=== PATIENT | female | born 1930 | race Caucasian/White ===

== ENCOUNTER 2017-07-03 14:14 | Inpatient (IN) | payer MEDICARE, OTHER ==
--- NOTE | 2017-07-03 14:19 | EDM.PDOC ---
ED HPI GENERAL MEDICAL PROBLEM - General Stated Complaint: MANY COMPLICATIONS Time Seen by Provider: 07/03/17 14:18 Source of Information: Reports: Patient, Family, Provider, RN, RN Notes Reviewed , Other (clinic nurse) - History of Present Illness INITIAL COMMENTS - FREE TEXT/NARRATIVE: Pt presents to the ER from [facility]. Pt was being seen in the clinic for some increased SOB. The patient's vitals were taken and found to have O2Sats of low 80's. Pt was brought directly to the ER. Patient states she has had some SOB at times, but no chest pain, N/V/D, Fever or chills. She states a cough at times. She states she takes Mucinex twice daily as directed by Dr. Kidd. Pt states she had a pacemaker placed in 2013. Onset: Today Duration: Constant - Related Data Allergies Allergy/AdvReac Type Severity Reaction Status Date / Time Penicillins AdvReac Unknown Edema of Verified 07/03/17 14:21 legs/feet Home Meds: Home Meds Rosuvastatin Calcium [Crestor] 10 mg PO DAILY 12/27/13 [History] Warfarin [Coumadin] 5 mg PO ASDIRECTED 12/27/13 [History] Acetaminophen 650 mg PO Q6H PRN 01/01/14 [History] Antiox#10/Om3/DHA/EPA/Lut/Zeax [I-Caps with Lutein-[place] 3 SFG] 1 tab PO BID [History] Polyvinyl Alcohol/Povidone [Refresh] 1 drop EYEBOTH DAILY PRN 01/01/14 [History] Warfarin [Coumadin] 2.5 mg PO ASDIRECTED 01/20/14 [History] Potassium Chloride 10 meq PO BID 03/16/14 [History] Albuterol/Ipratropium [Combivent Respimat] 4 gm IH QID PRN #1 aer.w.adap [Rx] Budesonide/Formoterol Fumarate [Symbicort 80-4.5 Mcg Inhaler] 10.2 gm IH BID #1 hfa.aer.ad 03/22/14 [Rx] Acetaminophen/Diphenhydramine [Tylenol Pm Ex-Strength Caplet] 1 tab PO BEDTIME 07/03/17 [History] Furosemide [Lasix] 40 mg PO ASDIRECTED 07/03/17 [History] Lisinopril [Prinivil] 10 mg PO DAILY 07/03/17 [History] Magnesium Oxide 250 mg PO BID 07/03/17 [History] Metoprolol Succinate [Toprol XL] 12.5 mg PO DAILY 07/03/17 [History] Sertraline [Zoloft] 50 mg PO DAILY 07/03/17 [History] guaiFENesin/Dextromethorphan [Mucinex DM ER 1,200-60 MG] 1 tab PO BID PRN [History] Past Medical History - Past Health History Medical/Surgical History: Denies Medical/Surgical History HEENT History: Reports: None Cardiovascular History: Reports: Afib, Pacemaker Respiratory History: Reports: None Gastrointestinal History: Reports: None Genitourinary History: Reports: None Social & Family History - Tobacco Use Smoking Status *Q: Never Smoker Second Hand Smoke Exposure: No - Alcohol Use Days Per Week of Alcohol Use: 0 - Recreational Drug Use Recreational Drug Use: No Drug Use in Last 12 Months: No - Living Situation & Occupation Living situation: Reports: , Alone Occupation: Retired ED ROS GENERAL - Review of Systems Review Of Systems: ROS reveals no pertinent complaints other than HPI. ED EXAM, GENERAL - Physical Exam Exam: See Below Exam Limited By: No Limitations General Appearance: Alert, WD/WN, No Apparent Distress Eye Exam: Bilateral Eye: EOMI, Normal Inspection Ears: Normal External Exam, Hearing Grossly Normal, Other (hearing aids) Nose: Normal Inspection Throat/Mouth: Normal Inspection, Normal Voice, No Airway Compromise Head: Atraumatic, Normocephalic Neck: Normal Inspection, Full Range of Motion Respiratory/Chest: No Respiratory Distress, No Accessory Muscle Use, Chest Non- Tender, Decreased Breath Sounds, Crackles (bilateral) Cardiovascular: Normal Peripheral Pulses, Regular Rate, Rhythm, No Edema, Systolic Murmur Peripheral Pulses: 1+: Radial (L), Radial (R) GI/Abdominal: Normal Bowel Sounds, Soft, Non-Tender, No Organomegaly, No Distention, No Abnormal Bruit, No Mass, Pelvis Stable (Female) Exam: Deferred Rectal (Female) Exam: Deferred Back Exam: Normal Inspection, Decreased Range of Motion Extremities: Normal Inspection, Normal Range of Motion, Non-Tender, No Pedal Edema, Normal Capillary Refill Neurological: Alert, Oriented, Normal Cognition, Normal Gait, No Motor/Sensory Deficits Psychiatric: Normal Affect, Normal Mood Skin Exam: Warm, Dry, Intact, Normal Color, No Rash Lymphatic: No Adenopathy EKG INTERPRETATION EKG Date: 07/03/17 Time: 14:22 Rhythm: A-Flutter (Ventricular paced) Rate (Beats/Min): 67 Comparison: Change From Previous EKG Course - Vital Signs Last Recorded V/S: Last Vital Signs Temp 98.1 F 07/03/17 14:22 Pulse 77 07/03/17 14:38 Resp 20 07/03/17 14:22 BP 143/65 H 07/03/17 14:22 Pulse Ox 85 L 07/03/17 14:22 - Orders/Labs/Meds Orders: Active Orders 24 hr Category Date Time Status EKG Documentation Completion [RC] STAT Care 07/03/17 14:19 Active Peripheral IV Care [RC] . DIRECTED Care 07/03/17 14:20 Active RT Aerosol Therapy [RC] ASDIRECTED Care 07/03/17 14:26 Active INFLUENZA A+B AG SCREEN [RM] Stat Lab 07/03/17 14:19 Ordered UA W/MICROSCOPIC [URIN] Stat Lab 07/03/17 14:33 Ordered Sodium Chloride 0.9% [Saline Flush] Med 07/03/17 14:19 Active 10 ml FLUSH ASDIRECTED PRN Peripheral IV Insertion Adult [OM.PC] Stat Oth 07/03/17 14:19 Ordered Medication Orders Sodium Chloride (Saline Flush) 10 ml FLUSH ASDIRECTED PRN PRN Reason: Keep Vein Open Last Admin: 07/03/17 14:46 Dose: 10 ml Labs: Laboratory Tests 07/03/17 07/03/17 07/03/17 Range/Units 14:20 14:20 14:33 WBC 8.3 (5.0-10.0) 10^3/uL RBC 3.51 L (4.2-5.4) 10^6/uL Hgb 10.8 L (12.0-16.0) g/dL Hct 33.8 L (37.0-47.0) % MCV 96.3 (80-100) fL MCH 30.8 (27.0-34.0) pg MCHC 32.0 L (33.0-35.0) g/dL Plt Count 204 D (150-450) 10^3/uL Neut % (Auto) 84.7 H (42.2-75.2) % Lymph % (Auto) 7.8 L (20.5-50.1) % [place] % (Auto) 7.4 (2-8) % Eos % (Auto) 0.0 L (1.0-3.0) % Baso % (Auto) 0.1 (0.0-1.0) % Sodium 129 L (135-145) mmol/L Potassium 4.2 (3.6-5.0) mmol/L Chloride 95 L (101-111) mmol/L Carbon Dioxide 23.0 (21.0-31.0) mmol/L Anion Gap 15.2 BUN 28 H (7-18) mg/dL Creatinine 1.2 (0.6-1.3) mg/dL Est Cr Clr Drug Dosing 25.63 mL/min Estimated GFR (MDRD) 42 BUN/Creatinine Ratio 23.33 Glucose 132 H (74-105) mg/dL Calcium 8.9 (8.4-10.2) mg/dl Total Bilirubin 1.4 H (0.2-1.0) mg/dL AST 45 H (10-42) IU/L ALT 21 (10-60) IU/L Alkaline Phosphatase 59 (42-121) IU/L Troponin I 0.04 H* (0.00-0.02) ng/ml B-Natriuretic Peptide 633 H (0-100) pg/ml Total Protein 7.4 (6.7-8.2) g/dl Albumin 3.8 (3.2-5.5) g/dl Globulin 3.6 Albumin/Globulin Ratio 1.06 Urine Color Yellow (YELLOW) Urine Appearance Slightly cloudy (CLEAR) Urine pH 5.5 (5.0-9.0) Ur Specific [place] 1.010 (1.005-1.030) Urine Protein Negative (NEGATIVE) Urine Glucose (UA) Negative (NEGATIVE) Urine Ketones Negative (NEGATIVE) Urine Occult Blood Small H (NEGATIVE) Urine Nitrite Negative (NEGATIVE) Urine Bilirubin Negative (NEGATIVE) Urine Urobilinogen 0.2 (0.2-1.0) mg/dL Ur Leukocyte Esterase Small H (NEGATIVE) Urine RBC 5-10 H /HPF Urine WBC 5-10 H (0-5/HPF) /HPF Ur Epithelial Cells Rare /HPF Amorphous Sediment Rare (0/HPF) /HPF Urine Bacteria Rare (0-FEW/HPF) /HPF Influenza A: Negative Influenza B: Negative Meds: Medications Generic Name Dose Route Start Last Admin Trade Name Freq PRN Reason Stop Dose Admin Sodium Chloride 10 ml 07/03/17 14:19 07/03/17 14:46 Saline Flush FLUSH 10 ml ASDIRECTED PRN Administration Keep Vein Open Discontinued Medications Generic Name Dose Route Start Last Admin Trade Name Freq PRN Reason Stop Dose Admin Albuterol/Ipratropium 3 ml 07/03/17 14:26 07/03/17 14:46 Duoneb 3.0-0.5 Mg/3 Ml NEB 07/03/17 14:27 3 ml ONETIME ONE Administration - Radiology Interpretation Free Text/Narrative:: Chest xray: IMPRESSION: Patchy air space opacity noted within the left lower lobe consistent with pneumonia with left pleural effusion. Thank you for allowing us to participate in the care of your patient. Dictated and Authenticated by: Deon Cole DO 07/03/2017 3:06 PM Central Time ([place] & [place]) See rad report Departure - Departure Time of Disposition: 15:47 Disposition: Admitted As Inpatient 64 Condition: Fair Clinical Impression: Hypoxemia Congestive heart failure Qualifiers: Heart failure type: other Qualified Code(s): I50.9 - Heart failure, unspecified - Discharge Information Forms: ED Department Discharge - My Orders Last 24 Hours: My Active Orders 07/03/17 14:19 EKG Documentation Completion [RC] STAT INFLUENZA A+B AG SCREEN [RM] Stat Sodium Chloride 0.9% [Saline Flush] 10 ml FLUSH ASDIRECTED PRN Peripheral IV Insertion Adult [OM.PC] Stat 07/03/17 14:20 Peripheral IV Care [RC] . DIRECTED 07/03/17 14:26 RT Aerosol Therapy [RC] ASDIRECTED 07/03/17 14:33 UA W/MICROSCOPIC [URIN] Stat - Assessment/Plan Last 24 Hours: My Active Orders 07/03/17 14:19 EKG Documentation Completion [RC] STAT INFLUENZA A+B AG SCREEN [RM] Stat Sodium Chloride 0.9% [Saline Flush] 10 ml FLUSH ASDIRECTED PRN Peripheral IV Insertion Adult [OM.PC] Stat 07/03/17 14:20 Peripheral IV Care [RC] . DIRECTED 07/03/17 14:26 RT Aerosol Therapy [RC] ASDIRECTED 07/03/17 14:33 UA W/MICROSCOPIC [URIN] Stat
[2017-07-03] MEDS ORDERED: Albuterol/Ipratropium 3.0-0.5 MG/3 ML Neb Soln NEB ONE (14:26)
[2017-07-03] MEDS: Sodium Chloride 0.9% 10 ML Syringe FLUSH PRN ×2 (14:46→19:55)
[2017-07-03 14:49] LABS: ANION GAP 15.2
[2017-07-03] MEDS ORDERED: Polyethylene Glycol 3350 Powder 17 GM Packet PO PRN (17:37)
[2017-07-03] MEDS ORDERED: Ondansetron 4 MG/2 ML SDV IVPUSH PRN (17:37)
[2017-07-03] MEDS ORDERED: Warfarin 5 MG Tab PO SCH ×2 (17:45)
[2017-07-03] MEDS ORDERED: Levofloxacin/Dextrose 5%-Water 500 MG in Premix Bag 1 BAG IV SCH (18:00)
--- NOTE | 2017-07-03 18:00 | PCM.HP ---
H&P History of Present Illness - General Date of Service: 07/03/17 Admit Problem/Dx: Admission Diagnosis/Problem Admission Diagnosis/Problem Pneumonia Source of Information: Patient History Limitations: Reports: No Limitations - History of Present Illness Initial Comments - Free Text/Narative: 88-1 year [age] female with past medical history of anxiety, breast cancer status post right mastectomy, coronary artery disease, hyperlipidemia, hypertension, lung nodule, macular degeneration disease, paroxysmal atrial fibrillation, by Jassi neck granuloma off oral mucosa, sick sinus syndrome status post pacemaker , urinary urgency present to the emergency room for having shortness of breath for the last 3 days. In the emergency room her sats were 84% on room air. Patient stated that for the last 3 days she has been feeling more weak and had 2 episodes of shortness of breath and some occasional cough with mucus. She said today she was feeling better. She admitted feeling more sleepy than usual. She thinks her weight increased but not sure. She denies fever, chills, nausea, vomiting, chest pain, palpitation, headache, abdominal pain, diarrhea, constipation, dysuria, unilateral weakness/numbness/tingling, rash, increased swelling of her legs, any other symptoms or concern. In the emergency room her laboratory data reported WBC 8.3 with left shift. Hemoglobin 10.8. Sodium 129. Potassium 4.2. BP 128. Creatinine 1.2. Total bilirubin 1.4. Troponin 0.04. BNP 633. - Related Data Allergies/Adverse Reactions: Allergies Allergy/AdvReac Type Severity Reaction Status Date / Time Penicillins AdvReac Unknown Edema of Verified 07/03/17 16:42 legs/feet Home Medications: Home Meds Rosuvastatin Calcium [Crestor] 10 mg PO BEDTIME 12/27/13 [History] Acetaminophen 650 mg PO Q6H PRN 01/01/14 [History] Antiox#10/Om3/DHA/EPA/Lut/Zeax [I-Caps with Lutein-[place] 3 SFG] 1 tab PO BIDMEALS 01/01/14 [History] Polyvinyl Alcohol/Povidone [Refresh] 1 drop EYEBOTH BID 01/01/14 [History] Potassium Chloride 10 meq PO BID 03/16/14 [History] Albuterol/Ipratropium [Combivent Respimat] 1 puff IH QID PRN 07/03/17 [History] Budesonide/Formoterol Fumarate [Symbicort 80-4.5 Mcg Inhaler] 1 puff IH BID [History] Furosemide [Lasix] 20 mg PO DAILY 07/03/17 [History] Furosemide [Lasix] 40 mg PO DAILY 07/03/17 [History] Lisinopril [Prinivil] 5 mg PO WITHDINNER 07/03/17 [History] Magnesium Oxide 250 mg PO BID 07/03/17 [History] Metoprolol Succinate [Toprol XL] 12.5 mg PO DAILY 07/03/17 [History] Sertraline [Zoloft] 50 mg PO DAILY 07/03/17 [History] Warfarin Sodium [Jantoven] 2.5 mg PO .[id number] 07/03/17 [History] Warfarin Sodium [Jantoven] 5 mg PO .TH 07/03/17 [History] guaiFENesin/Dextromethorphan [Mucinex DM ER 1,200-60 MG] 1 tab PO BID PRN [History] Past Medical History - Past Health History Medical/Surgical History: Denies Medical/Surgical History HEENT History: Reports: None Cardiovascular History: Reports: Afib, Pacemaker Other Cardiovascular History: sick sinus syndrome Respiratory History: Reports: None Gastrointestinal History: Reports: None Genitourinary History: Reports: None Psychiatric History: Reports: Depression Endocrine/Metabolic History: Reports: Osteoporosis Oncologic (Cancer) History: Reports: Breast - Past Surgical History Female Surgical History: Reports: Hysterectomy Oncologic Surgical History: Reports: Mastectomy Social & Family History - Family History Family Medical History: Unobtainable - Tobacco Use Smoking Status *Q: Never Smoker Second Hand Smoke Exposure: No - Caffeine Use Caffeine Use: Reports: None - Alcohol Use Days Per Week of Alcohol Use: 0 - Recreational Drug Use Recreational Drug Use: No Drug Use in Last 12 Months: No - Living Situation & Occupation Living situation: Reports: , Alone Occupation: Retired H&P Review of Systems - Review of Systems: Review Of Systems: ROS reveals no pertinent complaints other than HPI. Exam - Exam Exam: See Below - Vital Signs Vital Signs: Last Vital Signs Temp 37.1 C 07/03/17 16:39 Pulse 92 07/03/17 16:39 Resp 22 H 07/03/17 16:39 BP 149/65 H 07/03/17 16:39 Pulse Ox 91 L 07/03/17 16:39 Weight: 60.056 kg - Exam General: Alert, Oriented, Cooperative. No: Moderate Distress, Severe Distress, Sedated, Lethargic, Obtunded HEENT: Conjunctiva Clear, EACs Clear, EOMI, Hearing Intact, Mucosa Moist & [place] , Nares Patent, Normal Nasal Septum, Posterior Pharynx Clear, Pupils Equal, Pupils Reactive, TMs Clear Neck: Supple, Trachea Midline, +2 Carotid Pulse wo Bruit Lungs: Normal Respiratory Effort, Decreased Breath Sounds (In bases left more than right), Crackles. No: Rhonchi, Rub, Stridor, Wheezing Cardiovascular: Regular Rate, Regular Rhythm GI/Abdominal Exam: Normal Bowel Sounds, Soft, Non-Tender, No Organomegaly, No Distention, No Abnormal Bruit, No Mass (Female) Exam: Deferred Rectal (Female) Exam: Deferred Back Exam: Normal Inspection, Full Range of Motion. No: CVA Tenderness (L), CVA Tenderness (R) Extremities: Normal Inspection, Normal Capillary Refill, Pedal Edema (+2 nonpitting bilateral lower extremities edema) Skin: Warm, Dry, Intact Neurological: Cranial Nerves Intact, Strength Equal Bilateral, Normal Speech Neuro Extensive - Mental Status: Normal Mood/Affect, Normal Cognition Psychiatric: Alert, Normal Affect, Normal Mood. No: Anxious, Depressed, Agitated, Suicidal Ideation, Homicidal Ideation, Hallucinations, Withdrawal Symptoms - Patient Data Lab Results Last 24 hrs: Laboratory Results - last 24 hr 07/03/17 07/03/17 07/03/17 Range/Units 14:20 14:20 14:33 WBC 8.3 (5.0-10.0) 10^3/uL RBC 3.51 L (4.2-5.4) 10^6/uL Hgb 10.8 L (12.0-16.0) g/dL Hct 33.8 L (37.0-47.0) % MCV 96.3 (80-100) fL MCH 30.8 (27.0-34.0) pg MCHC 32.0 L (33.0-35.0) g/dL Plt Count 204 D (150-450) 10^3/uL Neut % (Auto) 84.7 H (42.2-75.2) % Lymph % (Auto) 7.8 L (20.5-50.1) % [place] % (Auto) 7.4 (2-8) % Eos % (Auto) 0.0 L (1.0-3.0) % Baso % (Auto) 0.1 (0.0-1.0) % Sodium 129 L (135-145) mmol/L Potassium 4.2 (3.6-5.0) mmol/L Chloride 95 L (101-111) mmol/L Carbon Dioxide 23.0 (21.0-31.0) mmol/L Anion Gap 15.2 BUN 28 H (7-18) mg/dL Creatinine 1.2 (0.6-1.3) mg/dL Est Cr Clr Drug Dosing 25.63 mL/min Estimated GFR (MDRD) 42 BUN/Creatinine Ratio 23.33 Glucose 132 H (74-105) mg/dL Calcium 8.9 (8.4-10.2) mg/dl Total Bilirubin 1.4 H (0.2-1.0) mg/dL AST 45 H (10-42) IU/L ALT 21 (10-60) IU/L Alkaline Phosphatase 59 (42-121) IU/L Troponin I 0.04 H* (0.00-0.02) ng/ml B-Natriuretic Peptide 633 H (0-100) pg/ml Total Protein 7.4 (6.7-8.2) g/dl Albumin 3.8 (3.2-5.5) g/dl Globulin 3.6 Albumin/Globulin Ratio 1.06 Urine Color Yellow (YELLOW) Urine Appearance Slightly cloudy (CLEAR) Urine pH 5.5 (5.0-9.0) Ur Specific [place] 1.010 (1.005-1.030) Urine Protein Negative (NEGATIVE) Urine Glucose (UA) Negative (NEGATIVE) Urine Ketones Negative (NEGATIVE) Urine Occult Blood Small H (NEGATIVE) Urine Nitrite Negative (NEGATIVE) Urine Bilirubin Negative (NEGATIVE) Urine Urobilinogen 0.2 (0.2-1.0) mg/dL Ur Leukocyte Esterase Small H (NEGATIVE) Urine RBC 5-10 H /HPF Urine WBC 5-10 H (0-5/HPF) /HPF Ur Epithelial Cells Rare /HPF Amorphous Sediment Rare (0/HPF) /HPF Urine Bacteria Rare (0-FEW/HPF) /HPF Result Diagrams: 07/03/17 14:20 07/03/17 14:20 Problem List Initiated/Reviewed/Updated: Yes Orders Last 24hrs: Active Orders 24 hr Category Date Time Status Patient Status [ADT] Routine ADT 07/03/17 17:37 Ordered Cardiac Monitoring [RC] CONTINUOUS Care 07/03/17 17:38 Ordered Height and Weight [RC] DAILY Care 07/03/17 17:37 Ordered Incentive Spirometry [RT Incentive Spirometry] [RC] Care 07/03/17 17:36 Ordered ASDIRECTED Intake and Output Strict [RC] ASDIRECTED Care 07/03/17 17:45 Active Intake and Output [RC] Q6H Care 07/03/17 17:38 Ordered Notify Provider Vital Signs [RC] ASDIRECTED Care 07/03/17 17:38 Ordered Oxygen Therapy [RC] PRN Care 07/03/17 17:37 Ordered Peripheral IV Care [RC] . DIRECTED Care 07/03/17 14:20 Active Pulse Oximetry [RC] CONTINUOUS Care 07/03/17 17:38 Ordered RT Aerosol Therapy [RC] ASDIRECTED Care 07/03/17 14:26 Active RT Aerosol Therapy [RC] ASDIRECTED Care 07/03/17 17:40 Ordered RT Chest Physiotherapy [RC] ASDIRECTED Care 07/03/17 17:36 Ordered Up With Assistance [RC] ASDIRECTED Care 07/03/17 17:37 Ordered Up ad [place]ora [RC] ASDIRECTED Care 07/03/17 17:37 Ordered VTE/DVT Education [RC] PER UNIT ROUTINE Care 07/03/17 17:37 Ordered Vital Signs [RC] Q4H Care 07/03/17 17:37 Ordered PT Evaluation and Treatment [CONS] Routine Cons 07/03/17 17:37 Ordered 2 Gram Sodium Diet [DIET] Diet 07/03/17 Breakfast Ordered BASIC METABOLIC PANEL,BMP [CHEM] AM Lab 07/04/17 05:11 Ordered CBC WITH AUTO DIFF [HEME] AM Lab 07/04/17 05:11 Ordered CULTURE BLOOD [BC] Stat Lab 07/03/17 17:36 Ordered CULTURE BLOOD [BC] Stat Lab 07/03/17 17:36 Ordered CULTURE SPUTUM + SMEAR [RM] Stat Lab 07/03/17 17:37 Ordered INFLUENZA A+B AG SCREEN [RM] Stat Lab 07/03/17 15:02 Received MAGNESIUM [CHEM] AM Lab 07/04/17 05:11 Ordered TROPONIN I [CHEM] Timed Lab 07/03/17 23:00 Ordered UA W/MICROSCOPIC [URIN] Stat Lab 07/03/17 14:33 Ordered Acetaminophen [Tylenol] Med 07/03/17 17:37 Ordered 650 mg PO Q4H PRN Albuterol/Ipratropium [DuoNeb 3.0-0.5 MG/3 ML] Med 07/03/17 17:45 Ordered 3 ml NEB Q6H Antiox#10/Om3/DHA/EPA/Lut/Zeax [I-Caps with Lutein- Med 07/03/17 18:00 Ordered [place] 3 SFG] 1 tab PO BIDMEALS Budesonide/Formoterol Fumarate [Symbicort 80-4.5 Mcg Med 07/03/17 21:00 Ordered Inhaler] 1 puff IH BID Furosemide [Lasix] Med 07/03/17 18:00 Ordered 40 mg IVPUSH Q8H Levofloxacin/Dextrose 5%-Water [Levaquin in D5W 500 MG/ Med 07/03/17 17:45 Ordered 100 ML] 500 mg Premix Bag 1 bag IV Q24H Lisinopril [Prinivil] Med 07/03/17 18:00 Ordered 5 mg PO WITHDINNER Magnesium Oxide Med 07/03/17 21:00 Ordered 250 mg PO BID Metoprolol Succinate [Toprol XL] Med 07/04/17 09:00 Ordered 12.5 mg PO DAILY Ondansetron [Zofran] Med 07/03/17 17:37 Ordered 4 mg IVPUSH Q6H PRN Polyethylene Glycol 3350 [MiraLAX] Med 07/03/17 17:37 Ordered 17 gm PO DAILY PRN Polyvinyl Alcohol/Povidone [Refresh] Med 07/03/17 21:00 Ordered 1 drop EYEBOTH BID Potassium Chloride [Potassium Chloride] Med 07/03/17 17:45 Ordered 10 meq PO TID Rosuvastatin [Crestor] Med 07/03/17 21:00 Ordered 10 mg PO BEDTIME Sertraline [Zoloft] Med 07/04/17 09:00 Ordered 50 mg PO DAILY Sodium Chloride 0.9% [Saline Flush] Med 07/03/17 14:19 Active 10 ml FLUSH ASDIRECTED PRN Warfarin Pharmacy to Dose [Pharmacy to Dose - Warfarin] Med 07/03/17 17:45 Ordered 1 dose .XX ASDIRECTED Warfarin [Coumadin] Med 07/03/17 17:45 Ordered 2.5 mg PO .MOTUWMIGUELU Warfarin [Coumadin] Med 07/03/17 17:45 Ordered 5 mg PO .TH Blood Culture x2 Reflex Set [OM.PC] Stat Oth 07/03/17 17:36 Ordered Peripheral IV Insertion Adult [OM.PC] Stat Oth 07/03/17 14:19 Ordered Resuscitation Status Routine Resus Stat 07/03/17 17:37 Ordered Medication Orders Acetaminophen (Tylenol) 650 mg PO Q4H PRN PRN Reason: Pain (Mild 1-3)/fever Albuterol/Ipratropium (Duoneb 3.0-0.5 Mg/3 Ml) 3 ml NEB Q6HRRT MIGUEL Furosemide (Lasix) 40 mg IVPUSH Q8H [facility]IGU[facility] Levofloxacin/Dextrose 500 mg/ (Premix) 100 mls @ 100 mls/hr IV Q24H [facility] Lisinopril (Prinivil) 5 mg PO WITHDINNER [facility] Magnesium Oxide (Magnesium Oxide) 250 mg PO BID [facility]IGUEL Metoprolol Succinate (Toprol Xl) 12.5 mg PO DAILY [facility] Non-Formulary Medication (Antiox#10/Om3/Dha/Epa/Lut/Zeax [I-Caps With Lutein- [place] 3 Sfg]) 1 tab PO BIDMEALS [facility] Non-Formulary Medication (Budesonide/Formoterol Fumarate [Symbicort 80-4.5 Mcg Inhaler]) 1 puff IH BID [facility] Non-Formulary Medication (Polyvinyl Alcohol/Povidone [Refresh]) 1 drop EYEBOTH BID [facility] Non-Formulary Medication (Potassium Chloride [Potassium Chloride]) 10 meq PO TID MIGUEL Ondansetron HCl (Zofran) 4 mg IVPUSH Q6H PRN PRN Reason: Nausea/Vomiting Polyethylene Glycol (Miralax) 17 gm PO DAILY PRN PRN Reason: Constipation Rosuvastatin Calcium (Crestor) 10 mg PO BEDTIME [facility] Sertraline HCl (Zoloft) 50 mg PO DAILY [facility] Sodium Chloride (Saline Flush) 10 ml FLUSH ASDIRECTED PRN PRN Reason: Keep Vein Open Last Admin: 07/03/17 14:46 Dose: 10 ml Warfarin Sodium (Pharmacy To Dose - Warfarin) 1 dose .XX ASDIRECTED [facility] Warfarin Sodium (Coumadin) 2.5 mg PO .JIN [facility] Warfarin Sodium (Coumadin) 5 mg PO .TH [facility] Assessment/Plan Comment:: 88-1 year [age] female with past medical history of anxiety, breast cancer status post right mastectomy, coronary artery disease, hyperlipidemia, hypertension, lung nodule, macular degeneration disease, paroxysmal atrial fibrillation, by Jassi neck granuloma off oral mucosa, sick sinus syndrome status post pacemaker , urinary urgency present to the emergency room for having shortness of breath for the last 3 days. WBC 8.3 with left shift. Hemoglobin 10.8. Sodium 129. Troponin 0.04. BNP 633. Chest x-ray reports pleural effusion and left sided opacity #Community acquired pneumonia Start Levaquin DuoNeb every 6 hours Continue home budesonide/formoterol. Patient denies having COPD or history of smoking but she takes budesonide/formoterol and DuoNeb at home Incentive spirometry and flutter Sputum and 2 blood cultures were ordered I will do CT scan to make sure she has no concerning tumor on the left side obscured by the effusion and pneumonia Chest x-ray on 03/26/17 reported chronic mild congestive heart failure. Subtle symmetric patchy new density in the left lung base #Acute heart failure exacerbation Last echocardiogram I can see is from 2013 and ejection fraction at that time was more than 60. However her BNP always high and today is higher than baseline. Change in her home oral Lasix to IV Lasix 40 mg every 6 hours #History of lung nodule on the left side Was reporting CAT scan from 2013. I will do CT scan to make sure she has no concerning tumor on the left side obscured by the effusion and pneumonia #Chronic kidney disease Creatinine baseline is 1.5 Avoid nephrotoxic medications Monitor kidney function and electrolytes since we increased her Lasix doses #Paroxysmal atrial fibrillation, on warfarin Rate is controlled Monitor in telemetry Continue metoprolol and warfarin. Warfarin dosing is per pharmacy #Right shoulder pain from arthritis She was seen recently at the clinic and started physical therapy Continue physical therapy #Generalized weakness From her general comorbidities and her current acute illness Physical therapy evaluation and treatment #History of coronary artery disease No chest pain Her slight elevation in troponin is most likely due to her congestive heart failure and chronic kidney disease DVT prophylaxis: Patient is already on warfarin Patient wants to be full code for CODE STATUS
[2017-07-03] MEDS: Albuterol/Ipratropium 3.0-0.5 MG/3 ML Neb Soln NEB SCH (18:04)
[2017-07-03] MEDS: Furosemide 40 MG/4 ML VIAL IVPUSH SCH (18:39)
[2017-07-03] MEDS: Potassium Chloride 10 MEQ Tab.ER PO SCH ×2 (18:46→22:10)
[2017-07-03] MEDS: Lisinopril 5 MG Tab PO SCH (18:46)
[2017-07-03] MEDS ORDERED: Non-Formulary Medication 1 Each (Potassium Chloride [Potassium Chloride] 10 MEQ) PO SCH (21:00)
[2017-07-03] MEDS: Rosuvastatin 10 MG Tab PO SCH (22:10)
[2017-07-03] MEDS: Polyvinyl Alcohol 1.4% Ophth Soln 15 ML Bottle EYEBOTH SCH (22:10)
[2017-07-03] MEDS: Formoterol/Mometasone 100-5 MCG 8.8 GM Inhaler IH SCH (22:13)
[2017-07-04] MEDS: Albuterol/Ipratropium 3.0-0.5 MG/3 ML Neb Soln NEB SCH ×4 (00:47→19:38)
[2017-07-04] MEDS: Sodium Chloride 0.9% 10 ML Syringe FLUSH PRN ×2 (02:53→09:48)
[2017-07-04] MEDS: Furosemide 40 MG/4 ML VIAL IVPUSH SCH ×3 (02:53→14:36)
[2017-07-04 07:01] LABS: ANION GAP 15.4
[2017-07-04] MEDS: Sertraline 50 MG Tab PO SCH (09:31)
[2017-07-04] MEDS: Potassium Chloride 10 MEQ Tab.ER PO SCH ×3 (09:32→20:59)
[2017-07-04] MEDS: Metoprolol Succinate 25 MG Tab.ER PO SCH (09:34)
[2017-07-04] MEDS: Formoterol/Mometasone 100-5 MCG 8.8 GM Inhaler IH SCH ×2 (09:37→21:00)
[2017-07-04] MEDS: Polyvinyl Alcohol 1.4% Ophth Soln 15 ML Bottle EYEBOTH SCH ×2 (09:39→21:01)
[2017-07-04] MEDS ORDERED: Potassium Chloride 10 MEQ Tab.ER PO ONE (10:05)
--- NOTE | 2017-07-04 10:11 | PCM.PN ---
- General Info Date of Service: 07/04/17 Subjective Update: Feeling better. Shortness of breath is less. Still coughing with minimal sputum production. Symptoms started a few days prior to admission and are improving. Associated chest pain. Had a CT this morning. Going to the bathroom good amounts and frequently. - Review of Systems General: Reports: Weakness. Denies: Fever Pulmonary: Reports: Shortness of Breath (Moderate), Cough (Dry) Cardiovascular: Denies: Chest Pain Gastrointestinal: Denies: Abdominal Pain Genitourinary: Denies: Dysuria Neurological: Denies: Confusion - Patient Data Vitals - Most Recent: Last Vital Signs Temp 36.6 C 07/04/17 07:00 Pulse 84 07/04/17 09:34 Resp 20 07/04/17 07:00 BP 138/52 L 07/04/17 09:34 Pulse Ox 98 07/04/17 07:00 Weight - Most Recent: 58.151 kg I&O - Last 24 Hours: Intake & Output 07/03/17 07/04/17 07/04/17 22:59 06:59 14:59 Intake Total 620 350 Output Total 450 1300 Balance 170 -950 Lab Results Last 24 Hours: Laboratory Results - last 24 hr 07/03/17 07/03/17 07/03/17 Range/Units 14:20 14:20 14:33 WBC 8.3 (5.0-10.0) 10^3/uL RBC 3.51 L (4.2-5.4) 10^6/uL Hgb 10.8 L (12.0-16.0) g/dL Hct 33.8 L (37.0-47.0) % MCV 96.3 (80-100) fL MCH 30.8 (27.0-34.0) pg MCHC 32.0 L (33.0-35.0) g/dL Plt Count 204 D (150-450) 10^3/uL Neut % (Auto) 84.7 H (42.2-75.2) % Lymph % (Auto) 7.8 L (20.5-50.1) % [place] % (Auto) 7.4 (2-8) % Eos % (Auto) 0.0 L (1.0-3.0) % Baso % (Auto) 0.1 (0.0-1.0) % PT (9.0-12.0) SEC INR (0.9-1.2) Sodium 129 L (135-145) mmol/L Potassium 4.2 (3.6-5.0) mmol/L Chloride 95 L (101-111) mmol/L Carbon Dioxide 23.0 (21.0-31.0) mmol/L Anion Gap 15.2 BUN 28 H (7-18) mg/dL Creatinine 1.2 (0.6-1.3) mg/dL Est Cr Clr Drug Dosing 25.63 mL/min Estimated GFR (MDRD) 42 BUN/Creatinine Ratio 23.33 Glucose 132 H (74-105) mg/dL Lactic Acid (0.5-2.2) mmol/L Calcium 8.9 (8.4-10.2) mg/dl Magnesium (1.8-2.5) mg/dL Total Bilirubin 1.4 H (0.2-1.0) mg/dL AST 45 H (10-42) IU/L ALT 21 (10-60) IU/L Alkaline Phosphatase 59 (42-121) IU/L Troponin I 0.04 H* (0.00-0.02) ng/ml B-Natriuretic Peptide 633 H (0-100) pg/ml Total Protein 7.4 (6.7-8.2) g/dl Albumin 3.8 (3.2-5.5) g/dl Globulin 3.6 Albumin/Globulin Ratio 1.06 Urine Color Yellow (YELLOW) Urine Appearance Slightly cloudy (CLEAR) Urine pH 5.5 (5.0-9.0) Ur Specific [place] 1.010 (1.005-1.030) Urine Protein Negative (NEGATIVE) Urine Glucose (UA) Negative (NEGATIVE) Urine Ketones Negative (NEGATIVE) Urine Occult Blood Small H (NEGATIVE) Urine Nitrite Negative (NEGATIVE) Urine Bilirubin Negative (NEGATIVE) Urine Urobilinogen 0.2 (0.2-1.0) mg/dL Ur Leukocyte Esterase Small H (NEGATIVE) Urine RBC 5-10 H /HPF Urine WBC 5-10 H (0-5/HPF) /HPF Ur Epithelial Cells Rare /HPF Amorphous Sediment Rare (0/HPF) /HPF Urine Bacteria Rare (0-FEW/HPF) /HPF 07/03/17 07/03/17 07/03/17 Range/Units 18:09 18:09 23:00 WBC (5.0-10.0) 10^3/uL RBC (4.2-5.4) 10^6/uL Hgb (12.0-16.0) g/dL Hct (37.0-47.0) % MCV (80-100) fL MCH (27.0-34.0) pg MCHC (33.0-35.0) g/dL Plt Count (150-450) 10^3/uL Neut % (Auto) (42.2-75.2) % Lymph % (Auto) (20.5-50.1) % [place] % (Auto) (2-8) % Eos % (Auto) (1.0-3.0) % Baso % (Auto) (0.0-1.0) % PT 24.8 H (9.0-12.0) SEC INR 2.5 H (0.9-1.2) Sodium (135-145) mmol/L Potassium (3.6-5.0) mmol/L Chloride (101-111) mmol/L Carbon Dioxide (21.0-31.0) mmol/L Anion Gap BUN (7-18) mg/dL Creatinine (0.6-1.3) mg/dL Est Cr Clr Drug Dosing mL/min Estimated GFR (MDRD) BUN/Creatinine Ratio Glucose (74-105) mg/dL Lactic Acid 1.3 (0.5-2.2) mmol/L Calcium (8.4-10.2) mg/dl Magnesium (1.8-2.5) mg/dL Total Bilirubin (0.2-1.0) mg/dL AST (10-42) IU/L ALT (10-60) IU/L Alkaline Phosphatase (42-121) IU/L Troponin I 0.05 H* (0.00-0.02) ng/ml B-Natriuretic Peptide (0-100) pg/ml Total Protein (6.7-8.2) g/dl Albumin (3.2-5.5) g/dl Globulin Albumin/Globulin Ratio Urine Color (YELLOW) Urine Appearance (CLEAR) Urine pH (5.0-9.0) Ur Specific [place] (1.005-1.030) Urine Protein (NEGATIVE) Urine Glucose (UA) (NEGATIVE) Urine Ketones (NEGATIVE) Urine Occult Blood (NEGATIVE) Urine Nitrite (NEGATIVE) Urine Bilirubin (NEGATIVE) Urine Urobilinogen (0.2-1.0) mg/dL Ur Leukocyte Esterase (NEGATIVE) Urine RBC /HPF Urine WBC (0-5/HPF) /HPF Ur Epithelial Cells /HPF Amorphous Sediment (0/HPF) /HPF Urine Bacteria (0-FEW/HPF) /HPF 07/04/17 07/04/17 07/04/17 Range/Units 06:28 06:28 06:28 WBC 7.8 (5.0-10.0) 10^3/uL RBC 3.35 L (4.2-5.4) 10^6/uL Hgb 10.4 L (12.0-16.0) g/dL Hct 32.2 L (37.0-47.0) % MCV 96.1 (80-100) fL MCH 31.0 (27.0-34.0) pg MCHC 32.3 L (33.0-35.0) g/dL Plt Count 178 (150-450) 10^3/uL Neut % (Auto) 78.9 H (42.2-75.2) % Lymph % (Auto) 8.2 L (20.5-50.1) % [place] % (Auto) 12.2 H (2-8) % Eos % (Auto) 0.6 L (1.0-3.0) % Baso % (Auto) 0.1 (0.0-1.0) % PT 23.1 H (9.0-12.0) SEC INR 2.3 H (0.9-1.2) Sodium 131 L (135-145) mmol/L Potassium 3.4 L (3.6-5.0) mmol/L Chloride 94 L (101-111) mmol/L Carbon Dioxide 25.0 (21.0-31.0) mmol/L Anion Gap 15.4 BUN 25 H (7-18) mg/dL Creatinine 1.2 (0.6-1.3) mg/dL Est Cr Clr Drug Dosing 25.63 mL/min Estimated GFR (MDRD) 42 BUN/Creatinine Ratio Glucose 115 H (74-105) mg/dL Lactic Acid (0.5-2.2) mmol/L Calcium 8.4 (8.4-10.2) mg/dl Magnesium 1.9 (1.8-2.5) mg/dL Total Bilirubin (0.2-1.0) mg/dL AST (10-42) IU/L ALT (10-60) IU/L Alkaline Phosphatase (42-121) IU/L Troponin I (0.00-0.02) ng/ml B-Natriuretic Peptide (0-100) pg/ml Total Protein (6.7-8.2) g/dl Albumin (3.2-5.5) g/dl Globulin Albumin/Globulin Ratio Urine Color (YELLOW) Urine Appearance (CLEAR) Urine pH (5.0-9.0) Ur Specific [place] (1.005-1.030) Urine Protein (NEGATIVE) Urine Glucose (UA) (NEGATIVE) Urine Ketones (NEGATIVE) Urine Occult Blood (NEGATIVE) Urine Nitrite (NEGATIVE) Urine Bilirubin (NEGATIVE) Urine Urobilinogen (0.2-1.0) mg/dL Ur Leukocyte Esterase (NEGATIVE) Urine RBC /HPF Urine WBC (0-5/HPF) /HPF Ur Epithelial Cells /HPF Amorphous Sediment (0/HPF) /HPF Urine Bacteria (0-FEW/HPF) /HPF Fredis Results Last 24 Hours: Microbiology 07/03/17 15:02 Influenza Type A Antigen Screen - Final Nasal, Unspecified NEGATIVE INFLUENZA A VIRUS AG Influenza Type B Antigen Screen - Final NEGATIVE INFLUENZA B VIRUS AG 07/04/17 00:50 Gram Stain - Final Sputum - Induced Med Orders - Current: Current Medications Acetaminophen (Tylenol) 650 mg PO Q4H PRN PRN Reason: Pain (Mild 1-3)/fever Albuterol/Ipratropium (Duoneb 3.0-0.5 Mg/3 Ml) 3 ml NEB Q6HRRT [facility] Last Admin: 07/04/17 07:42 Dose: 3 ml Artificial Tears (Liquitears 1.4% Ophth Soln) 0 ml EYEBOTH BID [facility] Last Admin: 07/04/17 09:39 Dose: 1 drop Furosemide (Lasix) 40 mg IVPUSH BID [facility] Levofloxacin/Dextrose 250 mg/ (Premix) 50 mls @ 50 mls/hr IV Q24H [facility] Lisinopril (Prinivil) 5 mg PO WITHDINNER [facility] Last Admin: 07/03/17 18:46 Dose: 5 mg Magnesium Oxide (Magnesium Oxide) 250 mg PO BID [facility] Last Admin: 07/04/17 09:30 Dose: 250 mg Metoprolol Succinate (Toprol Xl) 12.5 mg PO DAILY [facility] Last Admin: 07/04/17 09:34 Dose: 12.5 mg Mometasone Furoate/Formoterol Fumar (Dulera 100-5 Mcg) 0 puff IH BID [facility] Last Admin: 07/04/17 09:37 Dose: 1 puff Multivitamins/Minerals (I-Alyce) 1 each PO BIDMEALS [facility] Ondansetron HCl (Zofran) 4 mg IVPUSH Q6H PRN PRN Reason: Nausea/Vomiting Polyethylene Glycol (Miralax) 17 gm PO DAILY PRN PRN Reason: Constipation Potassium Chloride (Klor-Con 10) 10 meq PO TID [facility] Last Admin: 07/04/17 09:32 Dose: 10 meq Potassium Chloride (Klor-Con 10) 20 meq PO ONETIME ONE Stop: 07/04/17 10:06 Rosuvastatin Calcium (Crestor) 10 mg PO BEDTIME [facility] Last Admin: 07/03/17 22:10 Dose: 10 mg Sertraline HCl (Zoloft) 50 mg PO DAILY [facility] Last Admin: 07/04/17 09:31 Dose: 50 mg Sodium Chloride (Saline Flush) 10 ml FLUSH ASDIRECTED PRN PRN Reason: Keep Vein Open Last Admin: 07/04/17 09:48 Dose: 10 ml Warfarin Sodium (Pharmacy To Dose - Warfarin) 1 dose .XX ASDIRECTED [facility] Warfarin Sodium (Coumadin) 5 mg PO ONETIME ONE Stop: 07/04/17 14:01 Discontinued Medications Albuterol/Ipratropium (Duoneb 3.0-0.5 Mg/3 Ml) 3 ml NEB ONETIME ONE Stop: 07/03/17 14:27 Last Admin: 07/03/17 14:46 Dose: 3 ml Furosemide (Lasix) 40 mg IVPUSH Q8H [facility] Last Admin: 07/04/17 09:40 Dose: 40 mg Levofloxacin/Dextrose 500 mg/ (Premix) 100 mls @ 100 mls/hr IV Q24H [facility] Stop: 07/04/17 01:00 Last Infusion: 07/03/17 19:56 Dose: Infused Non-Formulary Medication (Potassium Chloride [Potassium Chloride]) 10 meq PO BID [facility] Warfarin Sodium (Coumadin) 2.5 mg PO .[id number] [facility] Warfarin Sodium (Coumadin) 5 mg PO .TH MIGUEL - Exam Quality Assessment: Supplemental Oxygen General: Alert, Oriented Neck: Supple Lungs: Rhonchi. No: Wheezing Cardiovascular: Regular Rate, Regular Rhythm GI/Abdominal Exam: Normal Bowel Sounds, Soft Extremities: No Pedal Edema - Problem List Review Problem List Initiated/Reviewed/Updated: Yes - My Orders Last 24 Hours: My Active Orders 07/04/17 10:05 Potassium Chloride [Klor-Con 10] 20 meq PO ONETIME ONE 07/04/17 21:00 Furosemide [Lasix] 40 mg IVPUSH BID 07/05/17 05:15 BASIC METABOLIC PANEL,BMP [CHEM] AM CBC WITH AUTO DIFF [HEME] AM - Plan Plan:: 88-1 year [age] female with past medical history of anxiety, breast cancer status post right mastectomy, coronary artery disease, hyperlipidemia, hypertension, lung nodule, macular degeneration disease, paroxysmal atrial fibrillation, biopsy of granuloma of oral mucosa, sick sinus syndrome status post pacemaker, urinary urgency present to the emergency room for having shortness of breath for the last 3 days. WBC 8.3 with left shift. Hemoglobin 10.8. Sodium 129. Troponin 0.04. BNP 633. Chest x-ray reports pleural effusion and left sided opacity #Community acquired pneumonia Start Levaquin Continue home budesonide/formoterol. Patient denies having COPD or history of smoking but she takes budesonide/formoterol and DuoNeb at home Incentive spirometry and flutter Sputum and 2 blood cultures are pending CT scan on 04 July showed left sided infiltrate and effusion. #Acute diastolic heart failure exacerbation Last echocardiogram showed an ejection fraction of more than 60. Started aggressively with diuretics. I will decrease the Lasix dose. Follow clinically. Replace potassium for hypokalemia, continue supplement #History of lung nodule on the left side This was not described on current CT #Chronic kidney disease Creatinine baseline is 1.5 Avoid nephrotoxic medications Monitor kidney function and electrolytes with Lasix #Paroxysmal atrial fibrillation, on warfarin Rate is controlled Monitor in telemetry Continue metoprolol and warfarin. Warfarin dosing for target INR 2-3 #Right shoulder pain from arthritis She was seen recently at the clinic and started physical therapy Continue physical therapy #Generalized weakness From her general comorbidities and her current acute illness Physical therapy evaluation and treatment #History of coronary artery disease No chest pain Her slight elevation in troponin is most likely due to her congestive heart failure and chronic kidney disease This remains stable DVT prophylaxis: Patient is already on warfarin Patient wants to be full code for CODE STATUS
[2017-07-04] MEDS ORDERED: Warfarin 5 MG Tab PO ONE (14:00)
[2017-07-04] MEDS: Lutein/Minerals/Vit A,C & E Tab PO SCH ×2 (15:00→18:26)
[2017-07-04] MEDS: Levofloxacin/Dextrose 5%-Water 250 MG in Premix Bag 1 BAG IV SCH (18:17)
[2017-07-04] MEDS: Lisinopril 5 MG Tab PO SCH (18:34)
[2017-07-04] MEDS: Rosuvastatin 10 MG Tab PO SCH (20:58)
[2017-07-05] MEDS: Albuterol/Ipratropium 3.0-0.5 MG/3 ML Neb Soln NEB SCH ×4 (00:50→17:54)
[2017-07-05 06:42] LABS: ANION GAP 12.9
[2017-07-05] MEDS: Potassium Chloride 10 MEQ Tab.ER PO SCH ×3 (08:43→21:33)
[2017-07-05] MEDS: Sertraline 50 MG Tab PO SCH (08:43)
[2017-07-05] MEDS: Lutein/Minerals/Vit A,C & E Tab PO SCH ×2 (08:43→17:26)
[2017-07-05] MEDS: Furosemide 40 MG/4 ML VIAL IVPUSH SCH ×2 (08:44→14:27)
[2017-07-05] MEDS: Metoprolol Succinate 25 MG Tab.ER PO SCH (08:44)
[2017-07-05] MEDS: Formoterol/Mometasone 100-5 MCG 8.8 GM Inhaler IH SCH ×2 (08:45→21:36)
[2017-07-05] MEDS: Polyvinyl Alcohol 1.4% Ophth Soln 15 ML Bottle EYEBOTH SCH ×2 (08:46→21:36)
--- NOTE | 2017-07-05 10:18 | PCM.PN ---
- General Info Date of Service: 07/05/17 Admission Dx/Problem (Free Text): Admission Diagnosis/Problem Admission Diagnosis/Problem Pneumonia Subjective Update: Feeling better. Shortness of breath is less. Still coughing. Only very low- grade temperature On no oxygen Symptoms started a few days prior to admission and are improving. no Associated chest pain. - Review of Systems General: Reports: Weakness. Denies: Fever HEENT: Reports: No Symptoms Pulmonary: Reports: Cough. Denies: Shortness of Breath, Pleuritic Chest Pain Cardiovascular: Denies: Chest Pain Gastrointestinal: Denies: Abdominal Pain Musculoskeletal: Denies: Neck Pain Neurological: Denies: Confusion - Patient Data Vitals - Most Recent: Last Vital Signs Temp 37.2 C 07/05/17 07:00 Pulse 93 07/05/17 08:44 Resp 20 07/05/17 07:00 BP 125/62 07/05/17 08:44 Pulse Ox 93 L 07/05/17 07:37 Weight - Most Recent: 58.145 kg I&O - Last 24 Hours: Intake & Output 07/04/17 07/05/17 07/05/17 22:59 06:59 14:59 Intake Total 650 200 Output Total 1000 500 Balance -350 -300 Lab Results Last 24 Hours: Laboratory Results - last 24 hr 07/05/17 07/05/17 Range/Units 05:55 05:55 WBC 9.1 (5.0-10.0) 10^3/uL RBC 3.29 L (4.2-5.4) 10^6/uL Hgb 10.2 L (12.0-16.0) g/dL Hct 31.7 L (37.0-47.0) % MCV 96.4 (80-100) fL MCH 31.0 (27.0-34.0) pg MCHC 32.2 L (33.0-35.0) g/dL Plt Count 190 (150-450) 10^3/uL Neut % (Auto) 78.5 H (42.2-75.2) % Lymph % (Auto) 6.9 L (20.5-50.1) % [place] % (Auto) 12.5 H (2-8) % Eos % (Auto) 1.9 (1.0-3.0) % Baso % (Auto) 0.2 (0.0-1.0) % Sodium 133 L (135-145) mmol/L Potassium 3.9 (3.6-5.0) mmol/L Chloride 97 L (101-111) mmol/L Carbon Dioxide 27.0 (21.0-31.0) mmol/L Anion Gap 12.9 BUN 24 H (7-18) mg/dL Creatinine 1.2 (0.6-1.3) mg/dL Est Cr Clr Drug Dosing 25.63 mL/min Estimated GFR (MDRD) 42 Glucose 97 (74-105) mg/dL Calcium 8.6 (8.4-10.2) mg/dl Fredis Results Last 24 Hours: Microbiology 07/03/17 18:15 Aerobic Blood Culture - Preliminary Blood - Venous - Lab Draw NO GROWTH AFTER 1 DAY Anaerobic Blood Culture - Preliminary NO GROWTH AFTER 1 DAY 07/03/17 18:09 Aerobic Blood Culture - Preliminary Blood - Venous NO GROWTH AFTER 1 DAY Anaerobic Blood Culture - Preliminary NO GROWTH AFTER 1 DAY 07/03/17 15:02 Influenza Type A Antigen Screen - Final Nasal, Unspecified NEGATIVE INFLUENZA A VIRUS AG Influenza Type B Antigen Screen - Final NEGATIVE INFLUENZA B VIRUS AG Med Orders - Current: Current Medications Acetaminophen (Tylenol) 650 mg PO Q4H PRN PRN Reason: Pain (Mild 1-3)/fever Albuterol/Ipratropium (Duoneb 3.0-0.5 Mg/3 Ml) 3 ml NEB Q6HRRT [facility] Last Admin: 07/05/17 07:36 Dose: 3 ml Artificial Tears (Liquitears 1.4% Ophth Soln) 0 ml EYEBOTH BID [facility] Last Admin: 07/05/17 08:46 Dose: 1 drop Furosemide (Lasix) 40 mg IVPUSH BIDDIURETIC [facility] Last Admin: 07/05/17 08:44 Dose: 40 mg Levofloxacin/Dextrose 250 mg/ (Premix) 50 mls @ 50 mls/hr IV Q24H [facility] Last Admin: 07/04/17 18:17 Dose: 50 mls/hr Lisinopril (Prinivil) 5 mg PO WITHDINNER [facility] Last Admin: 07/04/17 18:34 Dose: 5 mg Magnesium Oxide (Magnesium Oxide) 250 mg PO BID [facility] Last Admin: 07/05/17 08:42 Dose: 250 mg Metoprolol Succinate (Toprol Xl) 12.5 mg PO DAILY [facility] Last Admin: 07/05/17 08:44 Dose: 12.5 mg Mometasone Furoate/Formoterol Fumar (Dulera 100-5 Mcg) 0 puff IH BID [facility] Last Admin: 07/05/17 08:45 Dose: 1 puff Multivitamins/Minerals (I-Alyce) 1 each PO BIDMEALS [facility] Last Admin: 07/05/17 08:43 Dose: 1 each Ondansetron HCl (Zofran) 4 mg IVPUSH Q6H PRN PRN Reason: Nausea/Vomiting Polyethylene Glycol (Miralax) 17 gm PO DAILY PRN PRN Reason: Constipation Potassium Chloride (Klor-Con 10) 10 meq PO TID [facility] Last Admin: 07/05/17 08:43 Dose: 10 meq Rosuvastatin Calcium (Crestor) 10 mg PO BEDTIME [facility] Last Admin: 07/04/17 20:58 Dose: 10 mg Sertraline HCl (Zoloft) 50 mg PO DAILY [facility] Last Admin: 07/05/17 08:43 Dose: 50 mg Sodium Chloride (Saline Flush) 10 ml FLUSH ASDIRECTED PRN PRN Reason: Keep Vein Open Last Admin: 07/04/17 09:48 Dose: 10 ml Warfarin Sodium (Pharmacy To Dose - Warfarin) 1 dose .XX ASDIRECTED [facility] Discontinued Medications Albuterol/Ipratropium (Duoneb 3.0-0.5 Mg/3 Ml) 3 ml NEB ONETIME ONE Stop: 07/03/17 14:27 Last Admin: 07/03/17 14:46 Dose: 3 ml Furosemide (Lasix) 40 mg IVPUSH Q8H [facility] Last Admin: 07/04/17 09:40 Dose: 40 mg Levofloxacin/Dextrose 500 mg/ (Premix) 100 mls @ 100 mls/hr IV Q24H [facility] Stop: 07/04/17 01:00 Last Infusion: 07/03/17 19:56 Dose: Infused Non-Formulary Medication (Potassium Chloride [Potassium Chloride]) 10 meq PO BID [facility] Potassium Chloride (Klor-Con 10) 20 meq PO ONETIME ONE Stop: 07/04/17 10:06 Last Admin: 07/04/17 14:36 Dose: 20 meq Warfarin Sodium (Coumadin) 2.5 mg PO .JIN [facility] Warfarin Sodium (Coumadin) 5 mg PO .[facility] Warfarin Sodium (Coumadin) 5 mg PO ONETIME ONE Stop: 07/04/17 14:01 Last Admin: 07/04/17 14:36 Dose: 5 mg - Exam Quality Assessment: No: Supplemental Oxygen General: Alert, Oriented HEENT: EOMI Neck: Supple Lungs: Clear to Auscultation, Normal Respiratory Effort Cardiovascular: Regular Rate, Regular Rhythm GI/Abdominal Exam: Normal Bowel Sounds, Soft, Non-Tender Extremities: No Pedal Edema - Problem List Review Problem List Initiated/Reviewed/Updated: Yes - My Orders Last 24 Hours: My Active Orders 07/04/17 14:00 Furosemide [Lasix] 40 mg IVPUSH BIDDIURETIC 07/05/17 09:45 INR,PT,PROTHROMBIN TIME [COAG] DAILY 07/06/17 08:46 INR,PT,PROTHROMBIN TIME [COAG] DAILY 07/07/17 08:46 INR,PT,PROTHROMBIN TIME [COAG] DAILY 07/08/17 08:46 INR,PT,PROTHROMBIN TIME [COAG] DAILY 07/09/17 08:46 INR,PT,PROTHROMBIN TIME [COAG] DAILY 07/10/17 08:46 INR,PT,PROTHROMBIN TIME [COAG] DAILY 07/11/17 08:46 INR,PT,PROTHROMBIN TIME [COAG] DAILY - Plan Plan:: 88-1 year old female with past medical history of anxiety, breast cancer status post right mastectomy, coronary artery disease, hyperlipidemia, hypertension, lung nodule, macular degeneration disease, paroxysmal atrial fibrillation, biopsy of granuloma of oral mucosa, sick sinus syndrome status post pacemaker, urinary urgency present to the emergency room for having shortness of breath for the last 3 days. WBC 8.3 with left shift. Hemoglobin 10.8. Sodium 129. Troponin 0.04. BNP 633. Chest x-ray reports pleural effusion and left sided opacity #Community acquired pneumonia Sputum culture pending Blood cultures are negative for now CT scan on 04 July showed left sided infiltrate and effusion. Continue to treat with Levaquin Continue home budesonide/formoterol. Patient denies having COPD or history of smoking but she takes budesonide/formoterol and DuoNeb at home Incentive spirometry and flutter #Acute diastolic heart failure exacerbation Last echocardiogram showed an ejection fraction of more than 60. Continue to treat with Lasix. Follow clinically. Replace potassium for hypokalemia, continue supplement #History of lung nodule on the left side This was not described on current CT #Chronic kidney disease Creatinine baseline is 1.5 Avoid nephrotoxic medications Monitor kidney function and electrolytes with Lasix #Paroxysmal atrial fibrillation, on warfarin Rate is controlled Continue metoprolol and warfarin. Warfarin dosing for target INR 2-3 #Right shoulder pain from arthritis She was seen recently at the clinic and started physical therapy Continue physical therapy #Generalized weakness From her general comorbidities and her current acute illness Physical therapy evaluation and treatment She lives in an assisted living. #History of coronary artery disease No chest pain Her slight elevation in troponin is most likely due to her congestive heart failure and chronic kidney disease This remains stable DVT prophylaxis: Patient is already on warfarin Patient wants to be full code for CODE STATUS
[2017-07-05] MEDS ORDERED: Warfarin 2.5 MG Tab PO ONE (14:00)
[2017-07-05] MEDS: guaiFENesin 100 MG/5 ML Soln 5 ML UD Cup PO PRN (14:42)
[2017-07-05] MEDS: Sodium Chloride 0.9% 10 ML Syringe FLUSH PRN (17:26)
[2017-07-05] MEDS: Levofloxacin/Dextrose 5%-Water 250 MG in Premix Bag 1 BAG IV SCH (17:26)
[2017-07-05] MEDS: Lisinopril 5 MG Tab PO SCH (17:34)
[2017-07-05] MEDS: Rosuvastatin 10 MG Tab PO SCH (21:33)
[2017-07-06] MEDS: Albuterol/Ipratropium 3.0-0.5 MG/3 ML Neb Soln NEB SCH ×4 (00:22→18:32)
[2017-07-06] MEDS: Formoterol/Mometasone 100-5 MCG 8.8 GM Inhaler IH SCH ×2 (08:06→21:20)
[2017-07-06] MEDS: Lutein/Minerals/Vit A,C & E Tab PO SCH ×4 (08:24→17:31)
[2017-07-06] MEDS: Potassium Chloride 10 MEQ Tab.ER PO SCH ×3 (08:24→21:18)
[2017-07-06] MEDS: Metoprolol Succinate 25 MG Tab.ER PO SCH (08:24)
[2017-07-06] MEDS: Sertraline 50 MG Tab PO SCH (08:25)
[2017-07-06] MEDS: Furosemide 40 MG/4 ML VIAL IVPUSH SCH (08:25)
[2017-07-06] MEDS: Polyvinyl Alcohol 1.4% Ophth Soln 15 ML Bottle EYEBOTH SCH ×2 (08:26→21:19)
--- NOTE | 2017-07-06 10:53 | PCM.PN ---
- General Info Date of Service: 07/06/17 Admission Dx/Problem (Free Text): Admission Diagnosis/Problem Admission Diagnosis/Problem Pneumonia Subjective Update: Feeling well, could not sleep last night. Shortness of breath is less. Still coughing. Head low-grade temperature last night On no oxygen Symptoms started a few days prior to admission. no Associated chest pain. She is feeling too weak to get home yet. Functional Status: Reports: Pain Controlled - Review of Systems General: Reports: Fever (Low-grade) Pulmonary: Reports: Cough. Denies: Shortness of Breath, Pleuritic Chest Pain Cardiovascular: Denies: Chest Pain Gastrointestinal: Denies: Abdominal Pain Neurological: Denies: Confusion Psychiatric: Denies: Depression - Patient Data Vitals - Most Recent: Last Vital Signs Temp 37.4 C 07/06/17 07:00 Pulse 62 07/06/17 08:24 Resp 20 07/06/17 07:00 BP 126/57 L 07/06/17 08:24 Pulse Ox 92 L 07/06/17 07:42 Weight - Most Recent: 56.971 kg I&O - Last 24 Hours: Intake & Output 07/05/17 07/06/17 07/06/17 22:59 06:59 14:59 Intake Total 475 150 Output Total 300 150 Balance 175 0 Lab Results Last 24 Hours: Laboratory Results - last 24 hr 07/06/17 07/06/17 07/06/17 Range/Units 06:15 06:15 06:15 WBC 7.3 (5.0-10.0) 10^3/uL RBC 3.21 L (4.2-5.4) 10^6/uL Hgb 10.0 L (12.0-16.0) g/dL Hct 31.0 L (37.0-47.0) % MCV 96.6 (80-100) fL MCH 31.2 (27.0-34.0) pg MCHC 32.3 L (33.0-35.0) g/dL Plt Count 188 (150-450) 10^3/uL Neut % (Auto) 74.4 (42.2-75.2) % Lymph % (Auto) 9.8 L (20.5-50.1) % [place] % (Auto) 13.0 H (2-8) % Eos % (Auto) 2.5 (1.0-3.0) % Baso % (Auto) 0.3 (0.0-1.0) % PT 30.2 H (9.0-12.0) SEC INR 3.0 H (0.9-1.2) Sodium 130 L (135-145) mmol/L Potassium 4.0 (3.6-5.0) mmol/L Chloride 96 L (101-111) mmol/L Carbon Dioxide 25.0 (21.0-31.0) mmol/L Anion Gap 13.0 BUN 27 H (7-18) mg/dL Creatinine 1.4 H (0.6-1.3) mg/dL Est Cr Clr Drug Dosing 21.97 mL/min Estimated GFR (MDRD) 35 Glucose 103 (74-105) mg/dL Calcium 8.7 (8.4-10.2) mg/dl Fredis Results Last 24 Hours: Microbiology 07/03/17 18:15 Aerobic Blood Culture - Preliminary Blood - Venous - Lab Draw NO GROWTH AFTER 2 DAYS Anaerobic Blood Culture - Preliminary NO GROWTH AFTER 2 DAYS 07/03/17 18:09 Aerobic Blood Culture - Preliminary Blood - Venous NO GROWTH AFTER 2 DAYS Anaerobic Blood Culture - Preliminary NO GROWTH AFTER 2 DAYS Med Orders - Current: Current Medications Acetaminophen (Tylenol) 650 mg PO Q4H PRN PRN Reason: Pain (Mild 1-3)/fever Albuterol/Ipratropium (Duoneb 3.0-0.5 Mg/3 Ml) 3 ml NEB Q6HRRT [facility] Last Admin: 07/06/17 07:37 Dose: 3 ml Artificial Tears (Liquitears 1.4% Ophth Soln) 0 ml EYEBOTH BID [facility] Last Admin: 07/06/17 08:26 Dose: 1 drop Furosemide (Lasix) 40 mg PO DAILY [facility] Guaifenesin (Robitussin) 200 mg PO Q6H PRN PRN Reason: Cough Last Admin: 07/05/17 14:42 Dose: 200 mg Levofloxacin/Dextrose 250 mg/ (Premix) 50 mls @ 50 mls/hr IV Q24H [facility] Last Admin: 07/05/17 17:26 Dose: 50 mls/hr Lisinopril (Prinivil) 5 mg PO WITHDINNER [facility] Last Admin: 07/05/17 17:34 Dose: 5 mg Magnesium Oxide (Magnesium Oxide) 250 mg PO BID [facility] Last Admin: 07/06/17 08:25 Dose: 250 mg Metoprolol Succinate (Toprol Xl) 12.5 mg PO DAILY [facility] Last Admin: 07/06/17 08:24 Dose: 12.5 mg Mometasone Furoate/Formoterol Fumar (Dulera 100-5 Mcg) 0 puff IH BID [facility] Last Admin: 07/06/17 08:06 Dose: 1 puff Multivitamins/Minerals (I-Alyce) 1 each PO BIDMEALS [facility] Last Admin: 07/06/17 08:27 Dose: Not Given Ondansetron HCl (Zofran) 4 mg IVPUSH Q6H PRN PRN Reason: Nausea/Vomiting Polyethylene Glycol (Miralax) 17 gm PO DAILY PRN PRN Reason: Constipation Potassium Chloride (Klor-Con 10) 10 meq PO TID [facility] Last Admin: 07/06/17 08:24 Dose: 10 meq Rosuvastatin Calcium (Crestor) 10 mg PO BEDTIME [facility] Last Admin: 07/05/17 21:33 Dose: 10 mg Sertraline HCl (Zoloft) 50 mg PO DAILY [facility] Last Admin: 07/06/17 08:25 Dose: 50 mg Sodium Chloride (Saline Flush) 10 ml FLUSH ASDIRECTED PRN PRN Reason: Keep Vein Open Last Admin: 07/05/17 17:26 Dose: 10 ml Warfarin Sodium (Pharmacy To Dose - Warfarin) 1 dose .XX ASDIRECTED [facility] Warfarin Sodium (Coumadin) 1.25 mg PO DAILY@1400 [facility] Stop: 07/06/17 14:01 Discontinued Medications Albuterol/Ipratropium (Duoneb 3.0-0.5 Mg/3 Ml) 3 ml NEB ONETIME ONE Stop: 07/03/17 14:27 Last Admin: 07/03/17 14:46 Dose: 3 ml Furosemide (Lasix) 40 mg IVPUSH Q8H [facility] Last Admin: 07/04/17 09:40 Dose: 40 mg Furosemide (Lasix) 40 mg IVPUSH BIDDIURETIC [facility] Last Admin: 07/06/17 08:25 Dose: 40 mg Levofloxacin/Dextrose 500 mg/ (Premix) 100 mls @ 100 mls/hr IV Q24H [facility] Stop: 07/04/17 01:00 Last Infusion: 07/03/17 19:56 Dose: Infused Non-Formulary Medication (Potassium Chloride [Potassium Chloride]) 10 meq PO BID [facility] Potassium Chloride (Klor-Con 10) 20 meq PO ONETIME ONE Stop: 07/04/17 10:06 Last Admin: 07/04/17 14:36 Dose: 20 meq Warfarin Sodium (Coumadin) 2.5 mg PO .MOTUWEFRSASU [facility] Warfarin Sodium (Coumadin) 5 mg PO .[facility] Warfarin Sodium (Coumadin) 5 mg PO ONETIME ONE Stop: 07/04/17 14:01 Last Admin: 07/04/17 14:36 Dose: 5 mg Warfarin Sodium (Coumadin) 2.5 mg PO ONETIME ONE Stop: 07/05/17 14:01 Last Admin: 07/05/17 14:42 Dose: 2.5 mg - Exam General: Alert, Oriented Lungs: Clear to Auscultation Cardiovascular: Regular Rate, Regular Rhythm GI/Abdominal Exam: Normal Bowel Sounds, Soft, Non-Tender Extremities: No Pedal Edema - Problem List Review Problem List Initiated/Reviewed/Updated: Yes - My Orders Last 24 Hours: My Active Orders 07/05/17 11:52 guaiFENesin [Robitussin] 200 mg PO Q6H PRN 07/06/17 14:00 Warfarin [Coumadin] 1.25 mg PO DAILY@1400 07/07/17 05:15 BASIC METABOLIC PANEL,BMP [CHEM] AM CBC WITH AUTO DIFF [HEME] AM 07/07/17 08:46 INR,PT,PROTHROMBIN TIME [COAG] DAILY 07/07/17 09:00 Furosemide [Lasix] 40 mg PO DAILY 07/08/17 08:46 INR,PT,PROTHROMBIN TIME [COAG] DAILY 07/09/17 08:46 INR,PT,PROTHROMBIN TIME [COAG] DAILY 07/10/17 08:46 INR,PT,PROTHROMBIN TIME [COAG] DAILY 07/11/17 08:46 INR,PT,PROTHROMBIN TIME [COAG] DAILY - Plan Plan:: 88-1 year old female with past medical history of anxiety, breast cancer status post right mastectomy, coronary artery disease, hyperlipidemia, hypertension, lung nodule, macular degeneration disease, paroxysmal atrial fibrillation, biopsy of granuloma of oral mucosa, sick sinus syndrome status post pacemaker, urinary urgency present to the emergency room for having shortness of breath for the last 3 days. WBC 8.3 with left shift. Hemoglobin 10.8. Sodium 129. Troponin 0.04. BNP 633. Chest x-ray reports pleural effusion and left sided opacity #Community acquired pneumonia Sputum culture is pending Blood cultures are negative for now CT scan on 04 July showed left sided infiltrate and effusion. Continue to treat with Levaquin Continue home budesonide/formoterol. Patient denies having COPD or history of smoking but she takes budesonide/formoterol and DuoNeb at home Incentive spirometry and flutter #Acute diastolic heart failure exacerbation Last echocardiogram showed an ejection fraction of more than 60. Continue to treat with Lasix but due to hyponatremia and increasing creatinine will cut back dose and switched to oral Follow clinically. #History of lung nodule on the left side This was not described on current CT #Chronic kidney disease Creatinine baseline is 1.5 Avoid nephrotoxic medications Monitor kidney function and electrolytes with Lasix #Paroxysmal atrial fibrillation, on warfarin Rate is controlled Continue metoprolol and warfarin. Warfarin dosing for target INR 2-3 #Right shoulder pain from arthritis She was seen recently at the clinic and started physical therapy Continue physical therapy #Generalized weakness From her general comorbidities and her current acute illness continue Physical therapy evaluation and treatment She lives in an assisted living. #History of coronary artery disease No chest pain The slight elevation in troponin is most likely due to her congestive heart failure and chronic kidney disease This remains stable DVT prophylaxis: Therapeutic INR with warfarin Patient wants to be full code for CODE STATUS
[2017-07-06] MEDS ORDERED: Warfarin 2.5 MG Tab PO SCH (14:00)
[2017-07-06] MEDS: Levofloxacin/Dextrose 5%-Water 250 MG in Premix Bag 1 BAG IV SCH (17:31)
[2017-07-06] MEDS: Lisinopril 5 MG Tab PO SCH (17:31)
[2017-07-06] MEDS: guaiFENesin 100 MG/5 ML Soln 5 ML UD Cup PO PRN (19:40)
[2017-07-06] MEDS: Rosuvastatin 10 MG Tab PO SCH (21:18)
[2017-07-07] MEDS: Albuterol/Ipratropium 3.0-0.5 MG/3 ML Neb Soln NEB SCH ×4 (01:07→18:18)
[2017-07-07] MEDS: Lutein/Minerals/Vit A,C & E Tab PO SCH ×2 (09:08→17:47)
[2017-07-07] MEDS: Furosemide 40 MG Tab PO SCH (09:09)
[2017-07-07] MEDS: Potassium Chloride 10 MEQ Tab.ER PO SCH ×3 (09:09→20:30)
[2017-07-07] MEDS: Metoprolol Succinate 25 MG Tab.ER PO SCH (09:09)
[2017-07-07] MEDS: Sertraline 50 MG Tab PO SCH (09:09)
[2017-07-07] MEDS: Formoterol/Mometasone 100-5 MCG 8.8 GM Inhaler IH SCH ×2 (09:11→20:31)
[2017-07-07] MEDS: guaiFENesin 100 MG/5 ML Soln 5 ML UD Cup PO PRN (09:12)
[2017-07-07] MEDS: Polyvinyl Alcohol 1.4% Ophth Soln 15 ML Bottle EYEBOTH SCH ×2 (09:12→20:33)
[2017-07-07] MEDS ORDERED: Benzonatate 100 MG Cap PO PRN (11:19)
--- NOTE | 2017-07-07 11:24 | PCM.PN ---
- General Info Date of Service: 07/07/17 Admission Dx/Problem (Free Text): Admission Diagnosis/Problem Admission Diagnosis/Problem Pneumonia Subjective Update: Feeling well, still could not sleep last night. Shortness of breath is less. Still coughing. On no oxygen Symptoms started a few days prior to admission. no Associated chest pain. She is feeling too weak to get home yet. she is afraid of being alone. Her family can not stay with her. She is expecting her son to visit her today. They will talk about potentially going to a residential. Functional Status: Reports: Pain Controlled - Review of Systems General: Reports: Weakness. Denies: Fever Pulmonary: Reports: Shortness of Breath (Mild) Cardiovascular: Denies: Chest Pain Gastrointestinal: Denies: Abdominal Pain Neurological: Denies: Confusion - Patient Data Vitals - Most Recent: Last Vital Signs Temp 37.2 C 07/07/17 07:00 Pulse 74 07/07/17 09:09 Resp 20 07/07/17 07:00 BP 129/58 L 07/07/17 09:09 Pulse Ox 93 L 07/07/17 07:51 Weight - Most Recent: 56.926 kg I&O - Last 24 Hours: Intake & Output 07/06/17 07/07/17 07/07/17 22:59 06:59 14:59 Intake Total 300 500 Output Total 500 300 100 Balance -200 200 -100 Lab Results Last 24 Hours: Laboratory Results - last 24 hr 07/07/17 07/07/17 07/07/17 Range/Units 05:30 05:30 06:43 WBC 8.5 (5.0-10.0) 10^3/uL RBC 3.45 L (4.2-5.4) 10^6/uL Hgb 10.6 L (12.0-16.0) g/dL Hct 33.3 L (37.0-47.0) % MCV 96.5 (80-100) fL MCH 30.7 (27.0-34.0) pg MCHC 31.8 L (33.0-35.0) g/dL Plt Count 210 (150-450) 10^3/uL Neut % (Auto) 75.3 H (42.2-75.2) % Lymph % (Auto) 10.0 L (20.5-50.1) % [place] % (Auto) 11.2 H (2-8) % Eos % (Auto) 3.3 H (1.0-3.0) % Baso % (Auto) 0.2 (0.0-1.0) % PT 27.1 H (9.0-12.0) SEC INR 2.7 H (0.9-1.2) Sodium 130 L (135-145) mmol/L Potassium 4.0 (3.6-5.0) mmol/L Chloride 95 L (101-111) mmol/L Carbon Dioxide 25.0 (21.0-31.0) mmol/L Anion Gap 14.0 BUN 24 H (7-18) mg/dL Creatinine 1.3 (0.6-1.3) mg/dL Est Cr Clr Drug Dosing 23.20 mL/min Estimated GFR (MDRD) 39 Glucose 101 (74-105) mg/dL Calcium 8.7 (8.4-10.2) mg/dl Fredis Results Last 24 Hours: Microbiology 07/04/17 00:50 Gram Stain - Final Sputum - Induced Sputum Culture - Final Normal Jessica 07/03/17 18:15 Aerobic Blood Culture - Preliminary Blood - Venous - Lab Draw NO GROWTH AFTER 3 DAYS Anaerobic Blood Culture - Preliminary NO GROWTH AFTER 3 DAYS 07/03/17 18:09 Aerobic Blood Culture - Preliminary Blood - Venous NO GROWTH AFTER 3 DAYS Anaerobic Blood Culture - Preliminary NO GROWTH AFTER 3 DAYS Med Orders - Current: Current Medications Acetaminophen (Tylenol) 650 mg PO Q4H PRN PRN Reason: Pain (Mild 1-3)/fever Albuterol/Ipratropium (Duoneb 3.0-0.5 Mg/3 Ml) 3 ml NEB Q6HRRT [facility] Last Admin: 07/07/17 07:48 Dose: 3 ml Artificial Tears (Liquitears 1.4% Ophth Soln) 0 ml EYEBOTH BID [facility] Last Admin: 07/07/17 09:12 Dose: 1 drop Benzonatate (Tessalon Perles) 100 mg PO TID PRN PRN Reason: Cough Furosemide (Lasix) 40 mg PO DAILY [facility] Last Admin: 07/07/17 09:09 Dose: 40 mg Guaifenesin/Phenylephrine HCl (Robitussin Dm) 10 ml PO TID [facility] Levofloxacin/Dextrose 250 mg/ (Premix) 50 mls @ 50 mls/hr IV Q24H [facility] Last Infusion: 07/06/17 18:35 Dose: Infused Lisinopril (Prinivil) 5 mg PO WITHDINNER [facility] Last Admin: 07/06/17 17:31 Dose: 5 mg Magnesium Oxide (Magnesium Oxide) 250 mg PO BID [facility] Last Admin: 07/07/17 09:08 Dose: 250 mg Metoprolol Succinate (Toprol Xl) 12.5 mg PO DAILY [facility] Last Admin: 07/07/17 09:09 Dose: 12.5 mg Mometasone Furoate/Formoterol Fumar (Dulera 100-5 Mcg) 0 puff IH BID [facility] Last Admin: 07/07/17 09:11 Dose: 1 puff Multivitamins/Minerals (I-Alyce) 1 each PO BIDMEALS [facility] Last Admin: 07/07/17 09:08 Dose: 1 each Ondansetron HCl (Zofran) 4 mg IVPUSH Q6H PRN PRN Reason: Nausea/Vomiting Polyethylene Glycol (Miralax) 17 gm PO DAILY PRN PRN Reason: Constipation Potassium Chloride (Klor-Con 10) 10 meq PO TID [facility] Last Admin: 07/07/17 09:09 Dose: 10 meq Rosuvastatin Calcium (Crestor) 10 mg PO BEDTIME [facility] Last Admin: 07/06/17 21:18 Dose: 10 mg Sertraline HCl (Zoloft) 50 mg PO DAILY [facility] Last Admin: 07/07/17 09:09 Dose: 50 mg Sodium Chloride (Saline Flush) 10 ml FLUSH ASDIRECTED PRN PRN Reason: Keep Vein Open Last Admin: 07/05/17 17:26 Dose: 10 ml Warfarin Sodium (Pharmacy To Dose - Warfarin) 1 dose .XX ASDIRECTED [facility] Warfarin Sodium (Coumadin) 1.25 mg PO DAILY@1400 [facility] Stop: 07/07/17 14:01 Zolpidem Tartrate (Ambien) 5 mg PO BEDTIME [facility] Discontinued Medications Albuterol/Ipratropium (Duoneb 3.0-0.5 Mg/3 Ml) 3 ml NEB ONETIME ONE Stop: 07/03/17 14:27 Last Admin: 07/03/17 14:46 Dose: 3 ml Furosemide (Lasix) 40 mg IVPUSH Q8H [facility] Last Admin: 07/04/17 09:40 Dose: 40 mg Furosemide (Lasix) 40 mg IVPUSH BIDDIURETIC [facility] Last Admin: 07/06/17 08:25 Dose: 40 mg Guaifenesin (Robitussin) 200 mg PO Q6H PRN PRN Reason: Cough Last Admin: 07/07/17 09:12 Dose: 200 mg Levofloxacin/Dextrose 500 mg/ (Premix) 100 mls @ 100 mls/hr IV Q24H [facility] Stop: 07/04/17 01:00 Last Infusion: 07/03/17 19:56 Dose: Infused Non-Formulary Medication (Potassium Chloride [Potassium Chloride]) 10 meq PO BID [facility] Potassium Chloride (Klor-Con 10) 20 meq PO ONETIME ONE Stop: 07/04/17 10:06 Last Admin: 07/04/17 14:36 Dose: 20 meq Warfarin Sodium (Coumadin) 2.5 mg [facility]farin Sodium (Coumadin) 5 mg PO .COUNT [facility] Warfarin Sodium (Coumadin) 5 mg PO ONETIME ONE Stop: 07/04/17 14:01 Last Admin: 07/04/17 14:36 Dose: 5 mg Warfarin Sodium (Coumadin) 2.5 mg PO ONETIME ONE Stop: 07/05/17 14:01 Last Admin: 07/05/17 14:42 Dose: 2.5 mg Warfarin Sodium (Coumadin) 1.25 mg PO DAILY@1400 [facility] Stop: 07/06/17 14:01 Last Admin: 07/06/17 14:40 Dose: 1.25 mg - Exam Quality Assessment: No: Supplemental Oxygen General: Alert, Oriented Neck: Supple Lungs: Decreased Breath Sounds. No: Rales, Rhonchi, Wheezing Cardiovascular: Regular Rate, Regular Rhythm GI/Abdominal Exam: Normal Bowel Sounds, Soft, Non-Tender Extremities: No Pedal Edema - Problem List Review Problem List Initiated/Reviewed/Updated: Yes - My Orders Last 24 Hours: My Active Orders 07/07/17 09:00 Furosemide [Lasix] 40 mg PO DAILY 07/07/17 11:19 Benzonatate [Tessalon Perles] 100 mg PO TID PRN 07/07/17 14:00 Dextromethorphan/guaiFENesin [Robitussin DM] 10 ml PO TID Warfarin [Coumadin] 1.25 mg PO DAILY@1400 07/07/17 21:00 Zolpidem [Ambien] 5 mg PO BEDTIME 07/08/17 08:46 INR,PT,PROTHROMBIN TIME [COAG] DAILY 07/09/17 08:46 INR,PT,PROTHROMBIN TIME [COAG] DAILY 07/10/17 08:46 INR,PT,PROTHROMBIN TIME [COAG] DAILY 07/11/17 08:46 INR,PT,PROTHROMBIN TIME [COAG] DAILY - Plan Plan:: 88-1 year old female with past medical history of anxiety, breast cancer status post right mastectomy, coronary artery disease, hyperlipidemia, hypertension, lung nodule, macular degeneration disease, paroxysmal atrial fibrillation, biopsy of granuloma of oral mucosa, sick sinus syndrome status post pacemaker, urinary urgency present to the emergency room for having shortness of breath for the last 3 days. WBC 8.3 with left shift. Hemoglobin 10.8. Sodium 129. Troponin 0.04. BNP 633. Chest x-ray reports pleural effusion and left sided opacity #Community acquired pneumonia Sputum culture is pending Blood cultures are negative for now CT scan on 04 July showed left sided infiltrate and effusion. Continue to treat with Levaquin Continue home budesonide/formoterol. Patient denies having COPD or history of smoking but she takes budesonide/formoterol and DuoNeb at home Incentive spirometry and flutter Will use scheduled Robitussin #Acute diastolic heart failure exacerbation Last echocardiogram showed an ejection fraction of more than 60. Continue to treat with Lasix Follow clinically. #History of lung nodule on the left side This was not described on current CT #Chronic kidney disease Creatinine baseline is 1.5 Avoid nephrotoxic medications Monitor kidney function and electrolytes with Lasix #Paroxysmal atrial fibrillation, on warfarin Rate is controlled Continue metoprolol and warfarin. Warfarin dosing for target INR 2-3 #Right shoulder pain from arthritis She was seen recently at the clinic and started physical therapy Continue physical therapy #Generalized weakness From her general comorbidities and her current acute illness continue Physical therapy evaluation and treatment She lives in an assisted living. We will have to explore if residential is a better option. #History of coronary artery disease No chest pain The slight elevation in troponin is most likely due to her congestive heart failure and chronic kidney disease This remains stable DVT prophylaxis: Therapeutic INR with warfarin Patient wants to be full code for CODE STATUS Start Ambien for sleep
[2017-07-07] MEDS ORDERED: Levofloxacin 500 MG Tab PO SCH (12:00)
[2017-07-07] MEDS ORDERED: Warfarin 2.5 MG Tab PO SCH (14:00)
[2017-07-07] MEDS: guaiFENesin/Dextromethorphan 100-10 MG/5 ML Soln 5 ML Cup PO SCH ×2 (14:19→20:27)
[2017-07-07] MEDS: Levofloxacin 250 MG Tab PO SCH (17:47)
[2017-07-07] MEDS: Lisinopril 5 MG Tab PO SCH (17:47)
[2017-07-07] MEDS: Acetaminophen 325 MG Tab PO PRN (20:29)
[2017-07-07] MEDS: Rosuvastatin 10 MG Tab PO SCH (20:29)
[2017-07-07] MEDS ORDERED: Zolpidem 5 MG Tab PO SCH (21:00)
[2017-07-08] MEDS: Albuterol/Ipratropium 3.0-0.5 MG/3 ML Neb Soln NEB SCH ×4 (01:18→19:53)
[2017-07-08] MEDS: Formoterol/Mometasone 100-5 MCG 8.8 GM Inhaler IH SCH (08:00)
[2017-07-08] MEDS: Lutein/Minerals/Vit A,C & E Tab PO SCH ×2 (08:23→17:32)
[2017-07-08] MEDS: Sertraline 50 MG Tab PO SCH (08:24)
[2017-07-08] MEDS: Potassium Chloride 10 MEQ Tab.ER PO SCH ×2 (08:24→13:00)
[2017-07-08] MEDS: Furosemide 40 MG Tab PO SCH (08:24)
[2017-07-08] MEDS: guaiFENesin/Dextromethorphan 100-10 MG/5 ML Soln 5 ML Cup PO SCH ×2 (08:24→12:59)
[2017-07-08] MEDS: Polyvinyl Alcohol 1.4% Ophth Soln 15 ML Bottle EYEBOTH SCH (08:25)
[2017-07-08] MEDS: Metoprolol Succinate 25 MG Tab.ER PO SCH (08:26)
--- NOTE | 2017-07-08 10:15 | EKG ---
07/03/2017- DOMENIC CLAUDIO - EKG, per my reading, shows ventricular-paced rhythm. [facility] /[id number]
--- NOTE | 2017-07-08 11:57 | PCM.DCSUM1 ---
Discharge Summary - Hospital Course Free Text/Narrative:: 88-1 year old female with past medical history of anxiety, breast cancer status post right mastectomy, coronary artery disease, hyperlipidemia, hypertension, lung nodule, macular degeneration disease, paroxysmal atrial fibrillation, biopsy of granuloma of oral mucosa, sick sinus syndrome status post pacemaker, urinary urgency present to the emergency room for having shortness of breath for the last 3 days. WBC 8.3 with left shift. Hemoglobin 10.8. Sodium 129. Troponin 0.04. BNP 633. Chest x-ray reports pleural effusion and left sided opacity #Community acquired pneumonia Sputum culture is negative Blood cultures are negative CT scan on 04 July showed left sided infiltrate and effusion. improved Continue to treat with Levaquin #Acute diastolic heart failure exacerbation Last echocardiogram showed an ejection fraction of more than 60. Continue to treat with Lasix Follow periodically #History of lung nodule on the left side This was not described on current CT #Chronic kidney disease Creatinine baseline is 1.5 Avoid nephrotoxic medications Monitor kidney function and electrolytes with Lasix periodically #Paroxysmal atrial fibrillation, on warfarin Rate is controlled Continue metoprolol and warfarin. Warfarin dosing for target INR 2-3 #Generalized weakness From her general comorbidities and her current acute illness She lives in an assisted living. seems strong enough to return into that setting #History of coronary artery disease No chest pain The slight elevation in troponin was most likely due to her congestive heart failure and chronic kidney disease This remains stable - Discharge Data Discharge Date: 07/08/17 Discharge Disposition: Home, Self-Care 01 Condition: Good - Patient Summary/Data Consults: Consultations 07/03/17 17:37 PT Evaluation and Treatment [CONS] Routine - Patient Instructions Diet: Heart Healthy Diet Activity: As Tolerated - Discharge Plan Prescriptions/Med Rec: Levofloxacin 250 mg PO DAILY #7 tablet Home Medications: Home Meds Rosuvastatin Calcium [Crestor] 10 mg PO BEDTIME 12/27/13 [History] Acetaminophen 650 mg PO Q6H PRN 01/01/14 [History] Antiox#10/Om3/DHA/EPA/Lut/Zeax [I-Caps with Lutein-[place] 3 SFG] 1 tab PO BIDMEALS 01/01/14 [History] Polyvinyl Alcohol/Povidone [Refresh] 1 drop EYEBOTH BID 01/01/14 [History] Potassium Chloride 10 meq PO BID 03/16/14 [History] Albuterol/Ipratropium [Combivent Respimat] 1 puff IH QID PRN 07/03/17 [History] Budesonide/Formoterol Fumarate [Symbicort 80-4.5 Mcg Inhaler] 1 puff IH BID [History] Furosemide [Lasix] 40 mg PO DAILY 07/03/17 [History] Lisinopril [Prinivil] 5 mg PO WITHDINNER 07/03/17 [History] Magnesium Oxide 250 mg PO BID 07/03/17 [History] Metoprolol Succinate [Toprol XL] 12.5 mg PO DAILY 07/03/17 [History] Sertraline [Zoloft] 50 mg PO DAILY 07/03/17 [History] Warfarin Sodium [Jantoven] 2.5 mg PO .MOTUWEFRSASU 07/03/17 [History] Warfarin Sodium [Jantoven] 5 mg PO .TH 07/03/17 [History] guaiFENesin/Dextromethorphan [Mucinex DM ER 1,200-60 MG] 1 tab PO BID PRN [History] Levofloxacin 250 mg PO DAILY #7 tablet 07/08/17 [Rx] Patient Handouts: Heart Failure, [id number] - Discharge Summary/Plan Comment DC Time >30 min.: No - General Info Date of Service: 07/08/17 - Review of Systems General: Reports: Weakness (mild). Denies: Fever Pulmonary: Reports: Cough. Denies: Shortness of Breath, Sputum Cardiovascular: Denies: Chest Pain Gastrointestinal: Denies: Abdominal Pain Neurological: Denies: Confusion Psychiatric: Denies: Depression - Patient Data Vitals - Most Recent: Last Vital Signs Temp 37.3 C 07/08/17 11:00 Pulse 86 07/08/17 11:00 Resp 20 07/08/17 11:00 BP 113/55 L 07/08/17 11:00 Pulse Ox 97 07/08/17 11:00 Weight - Most Recent: 57.062 kg I&O - Last 24 hours: Intake & Output 07/07/17 07/08/17 07/08/17 22:59 06:59 14:59 Intake Total 620 100 500 Output Total 1000 500 200 Balance -380 -400 300 Lab Results - Last 24 hrs: Laboratory Results - last 24 hr 07/08/17 Range/Units 06:18 PT 24.3 H (9.0-12.0) SEC INR 2.4 H (0.9-1.2) RENATE Results - Last 24 hrs: Microbiology 07/03/17 18:15 Aerobic Blood Culture - Preliminary Blood - Venous - Lab Draw NO GROWTH AFTER 4 DAYS Anaerobic Blood Culture - Preliminary NO GROWTH AFTER 4 DAYS 07/03/17 18:09 Aerobic Blood Culture - Preliminary Blood - Venous NO GROWTH AFTER 4 DAYS Anaerobic Blood Culture - Preliminary NO GROWTH AFTER 4 DAYS 07/04/17 00:50 Gram Stain - Final Sputum - Induced Sputum Culture - Final Normal Jessica Med Orders - Current: Current Medications Acetaminophen (Tylenol) 650 mg PO Q4H PRN PRN Reason: Pain (Mild 1-3)/fever Last Admin: 07/07/17 20:29 Dose: 650 mg Albuterol/Ipratropium (Duoneb 3.0-0.5 Mg/3 Ml) 3 ml NEB Q6HRRT [facility] Last Admin: 07/08/17 07:59 Dose: 3 ml Artificial Tears (Liquitears 1.4% Ophth Soln) 0 ml EYEBOTH BID [facility] Last Admin: 07/08/17 08:25 Dose: 1 drop Benzonatate (Tessalon Perles) 100 mg PO TID PRN PRN Reason: Cough Last Admin: 07/07/17 20:30 Dose: 100 mg Furosemide (Lasix) 40 mg PO DAILY [facility] Last Admin: 07/08/17 08:24 Dose: 40 mg Guaifenesin/Phenylephrine HCl (Robitussin Dm) 10 ml PO TID [facility] Last Admin: 07/08/17 08:24 Dose: 10 ml Levofloxacin (Levaquin) 250 mg PO Q24H [facility] Last Admin: 07/07/17 17:47 Dose: 250 mg Lisinopril (Prinivil) 5 mg PO WITHDINNER [facility] Last Admin: 07/07/17 17:47 Dose: 5 mg Magnesium Oxide (Magnesium Oxide) 250 mg PO BID [facility] Last Admin: 07/08/17 08:24 Dose: 250 mg Metoprolol Succinate (Toprol Xl) 12.5 mg PO DAILY [facility] Last Admin: 07/08/17 08:26 Dose: 12.5 mg Mometasone Furoate/Formoterol Fumar (Dulera 100-5 Mcg) 0 puff IH BID [facility] Last Admin: 07/08/17 08:00 Dose: 1 puff Multivitamins/Minerals (I-Alyce) 1 each PO BIDMEALS [facility] Last Admin: 07/08/17 08:23 Dose: 1 each Ondansetron HCl (Zofran) 4 mg IVPUSH Q6H PRN PRN Reason: Nausea/Vomiting Polyethylene Glycol (Miralax) 17 gm PO DAILY PRN PRN Reason: Constipation Potassium Chloride (Klor-Con 10) 10 meq PO TID [facility] Last Admin: 07/08/17 08:24 Dose: 10 meq Rosuvastatin Calcium (Crestor) 10 mg PO BEDTIME [facility] Last Admin: 07/07/17 20:29 Dose: 10 mg Sertraline HCl (Zoloft) 50 mg PO DAILY [facility] Last Admin: 07/08/17 08:24 Dose: 50 mg Sodium Chloride (Saline Flush) 10 ml FLUSH ASDIRECTED PRN PRN Reason: Keep Vein Open Last Admin: 07/05/17 17:26 Dose: 10 ml Warfarin Sodium (Pharmacy To Dose - Warfarin) 1 dose .XX ASDIRECTED [facility] Warfarin Sodium (Coumadin) 1.25 mg PO ONETIME ONE Stop: 07/08/17 14:01 Zolpidem Tartrate (Ambien) 5 mg PO BEDTIME [facility] Last Admin: 07/07/17 20:30 Dose: 5 mg Discontinued Medications Albuterol/Ipratropium (Duoneb 3.0-0.5 Mg/3 Ml) 3 ml NEB ONETIME ONE Stop: 07/03/17 14:27 Last Admin: 07/03/17 14:46 Dose: 3 ml Furosemide (Lasix) 40 mg IVPUSH Q8H [facility] Last Admin: 07/04/17 09:40 Dose: 40 mg Furosemide (Lasix) 40 mg IVPUSH BIDDIURETIC [facility] Last Admin: 07/06/17 08:25 Dose: 40 mg Guaifenesin (Robitussin) 200 mg PO Q6H PRN PRN Reason: Cough Last Admin: 07/07/17 09:12 Dose: 200 mg Levofloxacin/Dextrose 500 mg/ (Premix) 100 mls @ 100 mls/hr IV Q24H [facility] Stop: 07/04/17 01:00 Last Infusion: 07/03/17 19:56 Dose: Infused Levofloxacin/Dextrose 250 mg/ (Premix) 50 mls @ 50 mls/hr IV Q24H [facility] Last Infusion: 07/06/17 18:35 Dose: Infused Levofloxacin (Levaquin) 500 mg PO Q24H [facility] Last Admin: 07/07/17 13:04 Dose: Not Given Non-Formulary Medication (Potassium Chloride [Potassium Chloride]) 10 meq PO BID [facility] Potassium Chloride (Klor-Con 10) 20 meq PO ONETIME ONE Stop: 07/04/17 10:06 Last Admin: 07/04/17 14:36 Dose: 20 meq Warfarin Sodium (Coumadin) [facility] Sodium ([facility]madin[facility] Warfarin Sodium (Coumadin) 5 mg PO ONETIME ONE Stop: 07/04/17 14:01 Last Admin: 07/04/17 14:36 Dose: 5 mg Warfarin Sodium (Coumadin) 2.5 mg PO ONETIME ONE Stop: 07/05/17 14:01 Last Admin: 07/05/17 14:42 Dose: 2.5 mg Warfarin Sodium (Coumadin) 1.25 mg PO DAILY@1400 [facility] Stop: 07/06/17 14:01 Last Admin: 07/06/17 14:40 Dose: 1.25 mg Warfarin Sodium (Coumadin) 1.25 mg PO DAILY@1400 [facility] Stop: 07/07/17 14:01 Last Admin: 07/07/17 14:19 Dose: 1.25 mg - Exam Quality Assessment: Denies: Supplemental Oxygen General: Reports: Alert, Oriented Neck: Reports: Supple Lungs: Reports: Clear to Auscultation, Normal Respiratory Effort. Denies: Wheezing Cardiovascular: Reports: Regular Rate, Regular Rhythm GI/Abdominal Exam: Normal Bowel Sounds, Soft, Non-Tender Extremities: No Pedal Edema
[2017-07-08] MEDS: Acetaminophen 325 MG Tab PO PRN (12:08)
[2017-07-08] MEDS ORDERED: Warfarin 2.5 MG Tab PO ONE (14:00)
[2017-07-08] MEDS: Levofloxacin 250 MG Tab PO SCH (17:32)
[2017-07-08] MEDS: Lisinopril 5 MG Tab PO SCH (17:32)
[2017-07-08 17:36] VITALS: BP 126/53
== END 2017-07-08 18:40 | disposition home or self-care (01) | DRG 193 ==
LOC: DL.ED 14:14 → UNDOADMIN 15:58 → DL.MS 15:58
PROVIDERS: ADMIT Family Medicine; ATTEND Family Medicine
DX: J18.9 Pneumonia, unspecified organism (principal); I50.33 Acute on chronic diastolic (congestive) heart failure; I50.9 Heart failure, unspecified; I48.91 Unspecified atrial fibrillation; I13.0 Hypertensive heart and chronic kidney disease with heart failure and stage 1 through stage 4 chronic kidney disease, or unspecified chronic kidney disease; E87.1 Hypo-osmolality and hyponatremia; I48.0 Paroxysmal atrial fibrillation; N18.9 Chronic kidney disease, unspecified; I48.92 Unspecified atrial flutter; R05 Cough; R06.02 Shortness of breath; I25.10 Atherosclerotic heart disease of native coronary artery without angina pectoris; E78.5 Hyperlipidemia, unspecified; R09.02 Hypoxemia; F41.9 Anxiety disorder, unspecified; H35.30 Unspecified macular degeneration; R91.1 Solitary pulmonary nodule; F32.9 Major depressive disorder, single episode, unspecified; M19.011 Primary osteoarthritis, right shoulder; M81.0 Age-related osteoporosis without current pathological fracture; R74.8 Abnormal levels of other serum enzymes; R39.15 Urgency of urination; R53.1 Weakness; Z90.710 Acquired absence of both cervix and uterus; Z95.0 Presence of cardiac pacemaker; Z85.3 Personal history of malignant neoplasm of breast; Z90.11 Acquired absence of right breast and nipple; Z88.0 Allergy status to penicillin; Z79.01 Long term (current) use of anticoagulants; Z79.899 Other long term (current) drug therapy; Z28.21 Immunization not carried out because of patient refusal
CPT/HCPCS: 36415; 71045; 80053; 81001; 83880; 84484; 85025; 87804 ×2; 93005; 93010; 99284; 99285; J7050; 71250; 80048; 83605; 83735; 85610; 87040; 87070; 87205; 94010; 94640; 94668; 97110-GP; 97116-GP; 97162-GP; A9270-GY; J1940; J1956

== ENCOUNTER 2017-07-26 09:08 | Emergency (ER) | payer MEDICARE, OTHER ==
--- NOTE | 2017-07-26 09:26 | EDM.PDOC ---
ED HPI GENERAL MEDICAL PROBLEM - General Chief Complaint: Respiratory Problem Stated Complaint: INCREASED SOB Time Seen by Provider: 07/26/17 09:22 Source of Information: Reports: Patient, Old Records, RN, RN Notes Reviewed History Limitations: Reports: No Limitations - History of Present Illness INITIAL COMMENTS - FREE TEXT/NARRATIVE: Pt arrives to ER from assisted living apartment by POV with c/o worsening shortness of breath, generalized weakness, shakiness, and diarrhea. Pt denies fevers or chills, chest pain or abdominal pain. Denies urinary Sx's. Admits to occasional nausea and decreased appetite, but has only vomited once (a couple days ago). Pt is unable to provide any further Hx. Old records indicate pt was admitted here in June with pneumonia and a left pleural effusion with incidental finding of a renal mass. Pt has not yet had further w/u of the mass. 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 Treatments, Other Medication(s) - Related Data Allergies Allergy/AdvReac Type Severity Reaction Status Date / Time Penicillins AdvReac Unknown Edema of Verified 07/26/17 09:30 legs/feet Home Meds: Home Meds Rosuvastatin Calcium [Crestor] 10 mg PO BEDTIME 12/27/13 [History] Acetaminophen 650 mg PO Q6H PRN 01/01/14 [History] Antiox#10/Om3/DHA/EPA/Lut/Zeax [I-Caps with Lutein-[place] 3 SFG] 1 tab PO BIDMEALS 01/01/14 [History] Polyvinyl Alcohol/Povidone [Refresh] 1 drop EYEBOTH BID 01/01/14 [History] Potassium Chloride 10 meq PO BID 03/16/14 [History] Albuterol/Ipratropium [Combivent Respimat] 1 puff IH QID PRN 07/03/17 [History] Budesonide/Formoterol Fumarate [Symbicort 80-4.5 Mcg Inhaler] 1 puff IH BID [History] Furosemide [Lasix] 40 mg PO DAILY 07/03/17 [History] Lisinopril [Prinivil] 5 mg PO WITHDINNER 07/03/17 [History] Magnesium Oxide 250 mg PO BID 07/03/17 [History] Metoprolol Succinate [Toprol XL] 12.5 mg PO DAILY 07/03/17 [History] Warfarin Sodium [Jantoven] 2.5 mg PO ASDIRECTED 07/03/17 [History] Warfarin Sodium [Jantoven] 5 mg PO ASDIRECTED 07/03/17 [History] guaiFENesin/Dextromethorphan [Mucinex DM ER 1,200-60 MG] 1 tab PO BID PRN [History] Alendronate [Fosamax] 70 mg PO WEEKLY 07/26/17 [History] Sertraline HCl 50 mg PO DAILY 07/26/17 [History] Past Medical History - Past Health History Medical/Surgical History: Denies Medical/Surgical History HEENT History: Reports: Hard of Hearing, Impaired Vision Cardiovascular History: Reports: Afib, CAD, Heart Failure, High Cholesterol, Hypertension, Pacemaker Other Cardiovascular History: sick sinus syndrome Respiratory History: Reports: Asthma, COPD, SOB Gastrointestinal History: Reports: None Genitourinary History: Reports: Chronic Renal Insuffiency, Other (See Below) ( renal mass, unknown type) Musculoskeletal History: Reports: Arthritis, Fracture, Osteoarthritis, Osteoporosis Neurological History: Reports: Other (See Below) Other Neuro History: dementia Psychiatric History: Reports: Anxiety, Depression Endocrine/Metabolic History: Reports: Osteoporosis Oncologic (Cancer) History: Reports: Breast - Past Surgical History Cardiovascular Surgical History: Reports: Pacer GI Surgical History: Reports: Cholecystectomy Female Surgical History: Reports: Breast Biopsy, Hysterectomy, Mastectomy Social & Family History - Family History Family Medical History: Unobtainable - Tobacco Use Smoking Status *Q: Never Smoker - Caffeine Use Caffeine Use: Reports: None - Alcohol Use Alcohol Use History: No - Recreational Drug Use Recreational Drug Use: No - Living Situation & Occupation Living situation: Reports: , Alone Occupation: Retired ED ROS GENERAL - Review of Systems Review Of Systems: ROS reveals no pertinent complaints other than HPI. ED EXAM, GENERAL - Physical Exam Exam: See Below Exam Limited By: No Limitations General Appearance: Alert, Anxious, Thin, Other (Frail, elderly, chronically ill appearing female.) Eye Exam: Bilateral Eye: Normal Inspection Ears: Hearing Loss (chronic/stable) Nose: Normal Inspection, Normal Mucosa, No Blood Throat/Mouth: Normal Voice, No Airway Compromise, Other (very dry oral membranes ) Head: Atraumatic, Normocephalic Neck: Normal Inspection, Supple, Non-Tender, Full Range of Motion Respiratory/Chest: No Respiratory Distress, No Accessory Muscle Use, Chest Non- Tender, Decreased Breath Sounds, Wheezing, Prolonged Expiration. No: Crackles, Rales, Rhonchi, Stridor Cardiovascular: Regular Rate, Rhythm, No JVD GI/Abdominal: Normal Bowel Sounds, Soft, Non-Tender, No Distention. No: Guarding, Rigid, Rebound (Female) Exam: Deferred Rectal (Female) Exam: Deferred Back Exam: Normal Inspection Extremities: Normal Range of Motion, Non-Tender, Pedal Edema (trace B/L). No: Joint Swelling Neurological: Alert, Oriented, Normal Cognition, No Motor/Sensory Deficits Psychiatric: Normal Mood Skin Exam: Warm, Dry, Intact, Normal Color, No Rash EKG INTERPRETATION EKG Date: 07/26/17 Time: 10:00 Rhythm: Other (PACED) Comparison: NA - No Prior EKG (PACED) Course - Vital Signs Last Recorded V/S: Last Vital Signs Temp 36.6 C 07/26/17 09:25 Pulse 60 07/26/17 09:45 Resp 28 H 07/26/17 09:25 BP 124/59 L 07/26/17 09:25 Pulse Ox 98 07/26/17 09:45 - Orders/Labs/Meds Orders: Active Orders 24 hr Category Date Time Status EKG 12 Lead [EKG Documentation Completion] [RC] STAT Care 07/26/17 09:43 Active Peripheral IV Care [RC] . DIRECTED Care 07/26/17 09:45 Active RT Aerosol Therapy [RC] ASDIRECTED Care 07/26/17 09:45 Active UA W/MICROSCOPIC [URIN] Stat Lab 07/26/17 09:43 Ordered Sodium Chloride 0.9% [Saline Flush] Med 07/26/17 09:44 Active 10 ml FLUSH ASDIRECTED PRN Peripheral IV Insertion Adult [OM.PC] Stat Oth 07/26/17 09:43 Ordered Medication Orders Sodium Chloride (Saline Flush) 10 ml FLUSH ASDIRECTED PRN PRN Reason: Keep Vein Open Last Admin: 05/11/18 09:49 Dose: 10 ml Labs: Laboratory Tests 07/26/17 07/26/17 07/26/17 Range/Units 10:00 10:00 10:11 WBC 7.6 (5.0-10.0) 10^3/uL RBC 3.61 L (4.2-5.4) 10^6/uL Hgb 11.0 L (12.0-16.0) g/dL Hct 34.1 L (37.0-47.0) % MCV 94.5 (80-100) fL MCH 30.5 (27.0-34.0) pg MCHC 32.3 L (33.0-35.0) g/dL Plt Count 220 (150-450) 10^3/uL Neut % (Auto) 84.7 H (42.2-75.2) % Lymph % (Auto) 6.7 L (20.5-50.1) % [place] % (Auto) 7.6 (2-8) % Eos % (Auto) 0.7 L (1.0-3.0) % Baso % (Auto) 0.3 (0.0-1.0) % PT 45.2 H D (9.0-12.0) SEC INR 4.7 H (0.9-1.2) Sodium 130 L (135-145) mmol/L Potassium 4.5 (3.6-5.0) mmol/L Chloride 97 L (101-111) mmol/L Carbon Dioxide 26.0 (21.0-31.0) mmol/L Anion Gap 11.5 BUN 30 H (7-18) mg/dL Creatinine 1.2 (0.6-1.3) mg/dL Est Cr Clr Drug Dosing 25.14 mL/min Estimated GFR (MDRD) 42 BUN/Creatinine Ratio 25.00 Glucose 144 H (74-105) mg/dL Calcium 8.7 (8.4-10.2) mg/dl Total Bilirubin 1.1 H (0.2-1.0) mg/dL AST 37 (10-42) IU/L ALT 18 (10-60) IU/L Alkaline Phosphatase 66 (42-121) IU/L Troponin I 0.05 H* (0.00-0.02) ng/ml B-Natriuretic Peptide 1460 H (0-100) pg/ml Total Protein 7.0 (6.7-8.2) g/dl Albumin 3.5 (3.2-5.5) g/dl Globulin 3.5 Albumin/Globulin Ratio 1.00 Amylase 30 (28-100) U/L Lipase 18 L (22-51) U/L Meds: Medications Generic Name Dose Route Start Last Admin Trade Name Freq PRN Reason Stop Dose Admin Sodium Chloride 10 ml 07/26/17 09:44 07/26/17 09:49 Saline Flush FLUSH 10 ml ASDIRECTED PRN Administration Keep Vein Open Discontinued Medications Generic Name Dose Route Start Last Admin Trade Name Freq PRN Reason Stop Dose Admin Albuterol/Ipratropium 3 ml 07/26/17 09:45 07/26/17 10:00 Duoneb 3.0-0.5 Mg/3 Ml NEB 07/26/17 09:46 3 ml ONETIME ONE Administration - Radiology Interpretation Free Text/Narrative:: CXR: pacer, cardiomegaly, left pleural effusion not significantly changed from June 2017; see Rad. report. Departure - Departure Time of Disposition: 11:06 Disposition: DC/[facility]fer to [facility] 02 Condition: Serious Clinical Impression: Acute respiratory failure with hypoxia, Recurrent left pleural effusion, CHF, Congestive heart failure, Acute diarrhea, Left kidney mass - Discharge Information Forms: ED Department Discharge, Interfacility Transfer EMTALA - My Orders Last 24 Hours: My Active Orders 07/26/17 09:43 EKG 12 Lead [EKG Documentation Completion] [RC] STAT UA W/MICROSCOPIC [URIN] Stat Peripheral IV Insertion Adult [OM.PC] Stat 07/26/17 09:44 Sodium Chloride 0.9% [Saline Flush] 10 ml FLUSH ASDIRECTED PRN 07/26/17 09:45 Peripheral IV Care [RC] . DIRECTED RT Aerosol Therapy [RC] ASDIRECTED - Assessment/Plan Last 24 Hours: My Active Orders 07/26/17 09:43 EKG 12 Lead [EKG Documentation Completion] [RC] STAT UA W/MICROSCOPIC [URIN] Stat Peripheral IV Insertion Adult [OM.PC] Stat 07/26/17 09:44 Sodium Chloride 0.9% [Saline Flush] 10 ml FLUSH ASDIRECTED PRN 07/26/17 09:45 Peripheral IV Care [RC] . DIRECTED RT Aerosol Therapy [RC] ASDIRECTED
[2017-07-26 09:31] VITALS: BP 124/59
[2017-07-26] MEDS ORDERED: Sodium Chloride 0.9% 10 ML Syringe FLUSH PRN (09:44)
[2017-07-26] MEDS ORDERED: Albuterol/Ipratropium 3.0-0.5 MG/3 ML Neb Soln NEB ONE (09:45)
--- NOTE | 2017-07-26 10:57 | CR ---
Clinical history: 87-year-old female with shortness of breath and "hypoxia". Interpretation: Markedly abnormal upright AP portable chest film with only minimal improvement since 03 July 2017 exam i.e. pulmonary vascularity slightly less congested however persistent cardiomegaly and large dependent subpulmonic pleural effusion left base this patient with cardiac pacemaker (lead intact and unchanged). Underlying left lower lobe atelectasis or infiltrate possible but no lung mass or other focal lobar c onsolidation CONCLUSION: CHF (see above)
== END 2017-07-26 11:58 ==
LOC: DL.ED 09:08
DX: J96.01 Acute respiratory failure with hypoxia (principal); I11.0 Hypertensive heart disease with heart failure; I50.9 Heart failure, unspecified; J90 Pleural effusion, not elsewhere classified; N28.89 Other specified disorders of kidney and ureter; E78.00 Pure hypercholesterolemia, unspecified; Z88.0 Allergy status to penicillin; Z79.899 Other long term (current) drug therapy; Z79.01 Long term (current) use of anticoagulants
CPT/HCPCS: 36415; 71045; 80053; 82150; 82272; 83690; 83880; 84484; 85025; 85610; 93005; 94640; 99285; J7050; 93010